=== PATIENT | female | born 1990 | race Caucasian/White ===

== ENCOUNTER 2016-09-25 12:02 | Emergency (ER) | payer SELFPAY ==
[2016-09-25 12:10] VITALS: BP 138/87; PULSE 70; TEMP 98; BMI 39.4
--- NOTE | 2016-09-25 13:53 | PDOC ---
History of Present Illness - General Chief Complaint: Rectal Bleed Stated Complaint: RECTAL BLEEDING Time Seen by Provider: 09/25/16 13:03 History Source: Patient Exam Limitations: No Limitations - History of Present Illness Initial Comments: 26 yo F no PMH presents with rectal bleeding x1 day. She states that she had intercourse last night and a finger was inserted in her rectum. She denies any pain. She states that she did not bleed until this morning. She had a bowel movement and noticed blood passing with brown stool. Denies abdominal pain, weakness, lightheadedness. Past History - Past Medical History Allergies/Adverse Reactions: Allergies Allergy/AdvReac Type Severity Reaction Status Date / Time sumatriptan succinate Allergy Severe feeling of Verified 09/25/16 12:10 [From Treximet] throat closing naproxen sodium Allergy Verified 09/25/16 12:10 [From Treximet] Home Medications: Ambulatory Orders NK [No Known Home Medication] 09/25/16 Asthma: No Cancer: No Cardiac Disorders: No Diabetes: No HTN: No Seizures: No Thyroid Disease: No - Reproductive History (#): 1 Para: 0 Therapeutic (s) & number: No Spontaneous : 0 - Psycho/Social/Smoking Cessation Hx Anxiety: No Suicidal Ideation: No Smoking Status: No Smoking History: Never smoked Number of Cigarettes Smoked Daily: 0 Hx Alcohol Use: No Drug/Substance Use Hx: No Substance Use Type: None Hx Substance Use Treatment: No Review of Systems - Review of Systems Able to Perform ROS?: Yes Comments:: GENERAL/CONSTITUTIONAL: No fever or chills. No weakness. HEAD, EYES, EARS, NOSE AND THROAT: No change in vision. No ear pain or discharge. No sore throat. CARDIOVASCULAR: No chest pain or shortness of breath. RESPIRATORY: No cough, wheezing, or hemoptysis. GASTROINTESTINAL: No nausea, vomiting, diarrhea or constipation. GENITOURINARY: No dysuria, frequency, or change in urination. MUSCULOSKELETAL: No joint or muscle swelling or pain. No neck or back pain. SKIN: No rash NEUROLOGIC: No headache, vertigo, loss of consciousness, or change in strength/ sensation. ENDOCRINE: No increased thirst. No abnormal weight change. HEMATOLOGIC/LYMPHATIC: No anemia, easy bleeding, or history of blood clots. ALLERGIC/IMMUNOLOGIC: No hives or skin allergy. *Physical Exam - Vital Signs Last Vital Signs Temp Pulse Resp BP Pulse Ox 98.0 F 70 20 138/87 99 09/25/16 12:06 09/25/16 12:06 09/25/16 12:06 09/25/16 12:06 09/25/16 12:06 - Physical Exam Comments: GENERAL: Awake, alert, and fully oriented, in no acute distress HEAD: No signs of trauma EYES: PERRLA, EOMI, sclera anicteric, conjunctiva clear ENT: Auricles normal inspection, hearing grossly normal, nares patent, oropharynx clear without exudates. Moist mucosa NECK: Normal ROM, supple, no lymphadenopathy, JVD, or masses LUNGS: Breath sounds equal, clear to auscultation bilaterally. No wheezes, and no crackles HEART: Regular rate and rhythm, normal S1 and S2, no murmurs, rubs or gallops ABDOMEN: Soft, nontender, normoactive bowel sounds. No guarding, no rebound. No masses EXTREMITIES: Normal range of motion, no edema. No clubbing or cyanosis. No cords, erythema, or tenderness NEUROLOGICAL: Cranial nerves II through XII grossly intact. Normal speech, normal gait SKIN: Warm, Dry, normal turgor, no rashes or lesions noted. RECTAL: Nontender to palpation. No blood noted. Small external hemorrhoids, nonthrombosed. Medical Decision Making - Medical Decision Making Counseled patient to avoid any rectal contact during intercourse until the hemorrhoid heals. F/u with PMD. *DC/Admit/Observation/Transfer Diagnosis at time of Disposition: Hemorrhoid Qualifiers: Hemorrhoid type: other Qualified Code(s): K64.8 - Other hemorrhoids - Discharge Dispostion Disposition: HOME Condition at time of disposition: Stable Admit: No - Patient Instructions Printed Discharge Instructions: DI for Hemorrhoids Additional Instructions: TUCKS PADS, PREPARATION H, AND SITZ BATHS (ALL OVER THE COUNTER IN PHARMACY). NO ANAL INTERCOURSE OR INSERTION OF OBJECTS UNTIL IT HEALS.
== END 2016-09-25 14:30 | disposition home or self-care (01) ==
LOC: JER 12:02
DX: K64.8 Other hemorrhoids (principal)
CPT/HCPCS: 84703; 99282-25

== ENCOUNTER 2018-04-06 22:45 | Emergency (ER) | payer OTHER ==
[2018-04-06 23:10] VITALS: BP 111/71; PULSE 101; TEMP 98.4; BMI 44.2
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
== END 2018-04-07 01:21 | disposition home or self-care (01) ==
LOC: JER 22:45
DX: J70.5 Respiratory conditions due to smoke inhalation (principal)
CPT/HCPCS: 99282-25

== ENCOUNTER 2018-07-02 18:54 | Emergency (ER) | payer OTHER ==
[2018-07-02 19:00] VITALS: BP 126/73; PULSE 95; TEMP 98.7; BMI 46.0
--- NOTE | 2018-07-02 19:00 | PDOC ---
Rapid Medical Evaluation Chief Complaint: Cold Symptoms Time Seen by Provider: 07/02/18 18:58 Medical Evaluation: Allergies Allergy/AdvReac Type Severity Reaction Status Date / Time sumatriptan succinate Allergy Severe feeling of Verified 04/06/18 23:07 [From Treximet] throat closing naproxen sodium Allergy Verified 04/06/18 23:07 [From Treximet] 07/02/18 18:59 Pt c/o: sore throat x 5 days, nasal congestion and right ear pain, no fever Pt on brief exam: mild erythema to post pharynx, vss Pt ordered for: strep Pt to proceed to the ED Discharge Disposition - Diagnosis Sore throat - Referrals - Patient Instructions - Post Discharge Activity
--- NOTE | 2018-07-02 19:30 | PDOC ---
History of Present Illness - General Chief Complaint: Cold Symptoms Stated Complaint: SORE THROAT, Rt ear discomfort Time Seen by Provider: 07/02/18 18:58 History Source: Patient Exam Limitations: No Limitations - History of Present Illness Timing/Duration: reports: getting worse Severity: reports: mild, moderate Associated Symptoms: reports: fever/chills, nasal congestion Past History - Travel Traveled outside of the country in the last 30 days: No Close contact w/someone who was outside of country & ill: No - Past Medical History Allergies/Adverse Reactions: Allergies Allergy/AdvReac Type Severity Reaction Status Date / Time sumatriptan succinate Allergy Severe feeling of Verified 07/02/18 19:00 [From Treximet] throat closing naproxen sodium Allergy Verified 07/02/18 19:00 [From Treximet] Home Medications: Ambulatory Orders Pseudoephedrine HCl 30 mg PO Q6H PRN #20 tablet 07/02/18 Asthma: No Cancer: No Cardiac Disorders: No COPD: No Diabetes: No HTN: No Seizures: No Thyroid Disease: No - Reproductive History (#): 1 Para: 0 Therapeutic (s) & number: No Spontaneous : 0 - Suicide/Smoking/Psychosocial Hx Smoking Status: No Smoking History: Never smoked Have you smoked in the past 12 months: No Number of Cigarettes Smoked Daily: 0 Information on smoking cessation initiated: No Hx Alcohol Use: No Drug/Substance Use Hx: No Substance Use Type: None Hx Substance Use Treatment: No Review of Systems - Review of Systems Able to Perform ROS?: Yes Is the patient limited Kazakh proficient: Yes Constitutional: Yes: Symptoms Reported, See HPI, Fever, Malaise HEENTM: Yes: Symptoms Reported, See HPI, Ear Pain, Nose Congestion Respiratory: Yes: Symptoms reported, See HPI, Cough Cardiac (ROS): No: Symptoms Reported Musculoskeletal: Yes: See HPI. No: Symptoms Reported Integumentary: Yes: See HPI. No: Symptoms Reported All Other Systems: Reviewed and Negative *Physical Exam - Vital Signs Last Vital Signs Temp Pulse Resp BP Pulse Ox 98.7 F 95 H 19 126/73 100 07/02/18 18:57 07/02/18 18:57 07/02/18 18:57 07/02/18 18:57 07/02/18 18:57 - Physical Exam General Appearance: Yes: Nourished, Appropriately Dressed, Mild Distress HEENT: positive: BOZENA, Normal ENT Inspection, Pharynx Normal (with clear posterior sinus drainage- no exudate / swelling/ airway clear), Nasal Congestion , Rhinorrhea (clear), Sinus Tenderness. negative: TMs Normal (congested ), Tonsillar Exudate Neck: positive: Supple, Lymphadenopathy (R), Lymphadenopathy (L). negative: Tender Respiratory/Chest: positive: Lungs Clear, Normal Breath Sounds. negative: Rhonchi, Wheezing Gastrointestinal/Abdominal: positive: Soft. 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 No evidence of bacterial infection therefore Will treat conservatively for postnasal drainage with sore throat pain. *DC/Admit/Observation/Transfer Diagnosis at time of Disposition: Sore throat - Discharge Dispostion Disposition: HOME Condition at time of disposition: Stable Decision to Admit order: No - Referrals - Patient Instructions Printed Discharge Instructions: DI for Common Cold Additional Instructions: Rest, drink lots of fluids: Teas, water, soups, Pedialyte Saltwater gargles Steamy showers/seem to face break up mucus Avoid contact with others until fevers and cough resolved Lots of handwashing and good hygiene Continue [id number] medications for symptomatic relief Tylenol or Motrin for fever and pain Followup with private physician in one to 2 days as needed Return to emergency department for worsened symptoms, fevers, dehydration - Post Discharge Activity Forms/Work/School Notes: Back to Work
== END 2018-07-02 19:54 | disposition home or self-care (01) ==
LOC: JER 18:54 → JERFT 18:54
DX: J00 Acute nasopharyngitis [common cold] (principal)
CPT/HCPCS: 87070; 87880; 99281-25

== ENCOUNTER 2018-07-04 13:14 | Emergency (ER) | payer OTHER ==
[2018-07-04 13:19] VITALS: BP 128/76; PULSE 66; TEMP 98.3; BMI 44.2
--- NOTE | 2018-07-04 13:46 | PDOC ---
History of Present Illness - General Chief Complaint: Eye Problem Stated Complaint: PINK EYE Time Seen by Provider: 07/04/18 13:25 - History of Present Illness Initial Comments: 07/04/18 13:41 28-year-old female without comorbidities presents for left eye irritation without systemic symptoms times one day. She complains of crusting eyes closed and continuous discharge Past History - Past Medical History Allergies/Adverse Reactions: Allergies Allergy/AdvReac Type Severity Reaction Status Date / Time sumatriptan succinate Allergy Severe feeling of Verified 07/04/18 13:16 [From Treximet] throat closing naproxen sodium Allergy Verified 07/04/18 13:16 [From Treximet] Home Medications: Ambulatory Orders Pseudoephedrine HCl 30 mg PO Q6H PRN #20 tablet 07/02/18 Asthma: No Cancer: No Cardiac Disorders: No COPD: No Diabetes: No HTN: No Seizures: No Thyroid Disease: No - Reproductive History (#): 1 Para: 0 Therapeutic (s) & number: No Spontaneous : 0 - Suicide/Smoking/Psychosocial Hx Smoking Status: No Smoking History: Never smoked Have you smoked in the past 12 months: No Number of Cigarettes Smoked Daily: 0 Hx Alcohol Use: No Drug/Substance Use Hx: No Substance Use Type: None Hx Substance Use Treatment: No Review of Systems - Review of Systems HEENTM: Yes: Tearing. No: Eye Pain, Blurred Vision, Recent change in vision, Double Vision *Physical Exam - Vital Signs Last Vital Signs Temp Pulse Resp BP Pulse Ox 98.3 F 66 128/76 98 07/04/18 13:17 07/04/18 13:17 07/04/18 13:17 07/04/18 13:17 - Physical Exam Comments: 07/04/18 13:43 HEAD: NC/AT EYES: Conjuntiva clear on right I, erythemic injected with a small amount of discharge on left eye MS: Full ROM in all joints without edema NEUROLOGIC: No gross sensory or motor deficits, NVID SKIN: Normal color and temperature no lesions or rashes Moderate Sedation - Procedure Monitoring Vital Signs: Procedure Monitoring Vital Signs Temperature 98.3 F 07/04/18 13:17 Pulse Rate 66 07/04/18 13:17 Respiratory Rate Blood Pressure 128/76 07/04/18 13:17 O2 Sat by Pulse Oximetry (%) 98 07/04/18 13:17 Medical Decision Making - Medical Decision Making 07/04/18 13:44 tobramycin for bacterial conjuntivitis opththalmology follow-up in 1-2 days *DC/Admit/Observation/Transfer Diagnosis at time of Disposition: Acute bacterial conjunctivitis of left eye - Discharge Dispostion Disposition: HOME Condition at time of disposition: Stable Decision to Admit order: No - Referrals Referrals: Syed Garcia MD [Staff Physician] - Syed Garcia MD [Staff Physician] - Stanley Valdez MD [Non Staff, Medical] - Antoine Crockett [Non Staff, Medical] - Juan Antonio Phillips MD [Non Staff, Medical] - Lemuel Guzmán MD [Staff Physician] - Adali Urbano MD [Staff Physician] - Eddie Avelar MD, MD [Non Staff, Medical] - Peter Espinoza MD [Non Staff, Medical] - Reyna Woodard MD [Non Staff, Medical] - - Patient Instructions Printed Discharge Instructions: How to Instill Eye Drops, Conjunctivitis, DI for Conjunctivitis Additional Instructions: Please use the antibiotic drops as directed. Return to the emergency room for worsening symptoms and follow-up with ophthalmology in one to 2 days for further evaluation and treatment options - Post Discharge Activity
== END 2018-07-04 13:52 | disposition home or self-care (01) ==
LOC: JERFT 13:14
DX: H10.32 Unspecified acute conjunctivitis, left eye (principal); B96.89 Other specified bacterial agents as the cause of diseases classified elsewhere
CPT/HCPCS: 99281-25

== ENCOUNTER 2019-09-27 13:00 | Inpatient (IN) | payer OTHER ==
[2019-09-21 12:02] VITALS: BMI 45.1
[2019-10-18] MEDS ORDERED: LIDOCAINE HCL/PF 2% SDV 5ML VIAL ONE ×3 (09:21→11:29)
[2019-10-18] MEDS ORDERED: DESFLURANE GAS 240 ML BOTTLE IH ONE (09:56)
[2019-10-18] MEDS ORDERED: PROPOFOL 20 ML ONE ×2 (10:03→11:50)
[2019-10-18] MEDS ORDERED: ONDANSETRON 4 MG/2 ML VIAL ONE (10:03)
[2019-10-18] MEDS ORDERED: ceFAZolin SODIUM 1 GM VIAL ONE (10:03)
[2019-10-18] MEDS ORDERED: DEXAMETHASONE SOD PHOSPHATE 4 MG/1 ML VIAL ONE (10:03)
[2019-10-18] MEDS ORDERED: SUCCINYLCHOLINE CHLORIDE 200 MG/10 ML SYRINGE ONE (10:03)
[2019-10-18] MEDS ORDERED: ROCURONIUM BROMIDE 50 MG/5 ML SYRINGE ONE (10:03)
[2019-10-18] MEDS ORDERED: MIDAZOLAM HCL 2 MG/2 ML SINGLE DOSE VIAL ONE (10:29)
[2019-10-18] MEDS ORDERED: BUPIVACAINE HCL/PF 0.5% (5 MG/ML) 30 ML VIAL IJ ONE (10:29)
[2019-10-18] MEDS ORDERED: SODIUM CHLORIDE 0.9% P/F 10 ML VIAL IJ ONE (10:29)
--- NOTE | 2019-10-18 10:34 | HP ---
Admitting History and Physical - Admission Chief Complaint: Morbid obesity History Source: Patient Limitations to Obtaining History: No Limitations - Past Medical History ...LMP: 07/20/12 ...LMP Comment: UNKNOWN PT HAS AN IUD ...: No - Past Surgical History Past Surgical History: Yes: , Tonsillectomy - Smoking History Smoking history: Never smoked Have you smoked in the past 12 months: No Aproximately how many cigarettes per day: 0 - Alcohol/Substance Use Hx Alcohol Use: No - Social History ADL: Independent Home Medications - Allergies Allergies/Adverse Reactions: Allergies Allergy/AdvReac Type Severity Reaction Status Date / Time sumatriptan succinate Allergy Severe feeling of Verified 09/21/19 11:34 [From Treximet] throat closing naproxen sodium Allergy Verified 09/21/19 11:34 [From Treximet] - Home Medications Home Medications: Ambulatory Orders Docusate Sodium [Colace -] 100 mg PO TID #90 capsule 10/18/19 Famotidine [Pepcid] 20 mg PO BID #60 tablet 10/18/19 Ondansetron [Zofran -] 8 mg PO TID #30 tablet 10/18/19 Oxycodone HCl/Acetaminophen [Percocet 5-325 mg Tablet] 1 - 2 tab PO Q6H #28 tab MDD 4 10/18/19 Family Medical History Family History: Unremarkable Review of Systems - Review of Systems Constitutional: denies: Chills, Fever Neck: reports: No Symptoms Cardiovascular: reports: No Symptoms Respiratory: reports: No Symptoms Gastrointestinal: reports: No Symptoms Neurological: reports: No Symptoms Pain Intensity: 0 Physical Examination Vital Signs: Vital Signs Temperature 98.7 F 10/18/19 08:13 Pulse Rate 77 10/18/19 08:13 Respiratory Rate 18 10/18/19 08:13 Blood Pressure 147/87 10/18/19 08:13 O2 Sat by Pulse Oximetry (%) 99 10/18/19 08:37 Constitutional: Yes: Calm Cardiovascular: Yes: WNL Respiratory: Yes: WNL Gastrointestinal: Yes: Soft, Abdomen, Obese Neurological: Yes: Alert, Oriented Problem List - Problems (1) Morbid obesity due to excess calories Code(s): E66.01 - MORBID (SEVERE) OBESITY DUE TO EXCESS CALORIES (2) BMI 45.0-49.9, adult Code(s): Z68.42 - BODY MASS INDEX (BMI) 45.0-49.9, ADULT Assessment/Plan Laparoscopic possible open vertical sleeve gastrectomy possible liver biopsy, upper endoscopy
[2019-10-18] MEDS ORDERED: BUPIVACAINE HCL/PF 2.5 MG/ML - 30 ML VIAL IJ ONE (10:56)
[2019-10-18] MEDS ORDERED: BUPIVACAINE HCL/PF 0.25% (2.5MG/ML) 10 ML VIAL IJ ONE ×2 (12:07→12:32)
[2019-10-18] MEDS ORDERED: NEOSTIGMINE METHYLSULFATE 0.5 MG/ML - 10 ML MDV ONE (12:27)
--- NOTE | 2019-10-18 12:36 | OPR ---
Operative Note Operative Date: 10/18/19 Pre-Operative Diagnosis: Morbid obesity Operation: 1. Diagnostic laparoscopy. 2. Laparoscopic vertical sleeve gastrectomy. 3. Laparoscopic wedge liver biopsy. 4. Laparoscopic oversewing of gastric staple line Post-Operative Diagnosis: Same as Pre-op (as well as hepatomegaly and oozing from gastric staple line) Surgeon: Paul Gallegos Motor Equipment Sergeant: Terrance Fishman Anesthesia: General Specimens Removed: Greater curvature of stomach. Liver biopsy. Estimated Blood Loss (mls): 30 Drains & Tubes with Location: [address] Operative Report Dictated: Yes
[2019-10-18] MEDS ORDERED: SODIUM CHLORIDE 1,000 ML IV SCH (12:45)
[2019-10-18] MEDS ORDERED: ACETAMINOPHEN 1000 MG/100 ML VIAL (NON FORMULARY) IVPB ONE (13:04)
[2019-10-18] MEDS ORDERED: FAMOTIDINE 20 MG/50 ML IVPB 20 MG/50 ML MG IVPB ONE (13:04)
[2019-10-18] MEDS: METOCLOPRAMIDE HCL INJECTION 10 MG/2 ML VIAL IVPUSH SCH ×2 (13:10→20:14)
[2019-10-18] MEDS ORDERED: FAMOTIDINE 20 MG PREMIXED IVPB IVPB ONE (13:15)
[2019-10-18 13:57] LABS: HEMATOCRIT 35.9 % (32.4-45.2); HEMOGLOBIN 11.9 GM/dl (10.7-15.3); MCH 27.5 pg (25.7-33.7); MCHC 33.2 g/dl (32.0-36.0); MEAN PLT VOLUME 9.3 fl (7.5-11.1); PLATELET COUNT 331 K/MM3 (134-434); RBC 4.33 M/mm3 (3.60-5.2); RDW 13.4 % (11.6-15.6); WHITE BLOOD COUNT 12.3 K/mm3 (4.0-10.8)
[2019-10-18 14:06] LABS: ALBUMIN 3.6 g/dl (3.4-5.0); CALCIUM 8.4 mg/dl (8.5-10); CREATININE 0.6 mg/dl (0.55-1.3); POTASSIUM 4.2 mmol/L (3.5-5.1); TOT PROT 7.1 g/dl (6.4-8.2)
[2019-10-18 14:17] LABS: BILIRUBIN,TOTAL 0.6 mg/dl (0.2-1)
[2019-10-18] MEDS: HYDROmorphone HCL CARPU-JECT 1 MG/1 ML DISP.SYRIN IVPB PRN ×2 (15:33→22:09)
[2019-10-18] MEDS: ONDANSETRON 4 MG/2 ML VIAL IVPUSH SCH ×2 (16:31→20:14)
--- NOTE | 2019-10-18 18:48 | OP ---
DATE OF OPERATION: 10/18/2019 SURGEON: Paul Gallegos MD. WOODWORK SALVAGE INSPECTOR: Terrance Fishman MD. PLACE OF SURGERY: [facility], [address] [place] [address] PREOPERATIVE DIAGNOSIS: 1. Morbid obesity. 2. Body mass index of 45.2. POSTOPERATIVE DIAGNOSIS: 1. Morbid obesity. 2. Body mass index of 45.2. PROCEDURES: 1. Laparoscopic vertical sleeve gastrectomy. 2. Laparoscopic wedge liver biopsy. 3. Oversewing of gastric staple line with Endo Stitch device for oozing. SPECIMENS: 1. Greater curvature of the stomach. 2. Liver biopsy. BLOOD LOSS: 50 mL. DRAINS: None. ANESTHESIA: GET REASON FOR PROCEDURE: This is a 29-year-old female who presents to the office for weight loss options. I described different options. She decided to proceed with laparoscopic, possible open vertical sleeve gastrectomy, possible liver biopsy, upper endoscopy. RISKS AND BENEFITS: After describing the different options for weight loss management, the patient decided to proceed with a laparoscopic, possible open vertical sleeve gastrectomy. The patient was seen by the respective subspecialties and cleared for surgery. The risks and benefits of the procedure were explained. These included bleeding, infection, hernia, MA, DVT, PE, injury to surrounding structures including the liver, colon, bowel, spleen, esophagus, vessel injury, nerve injury, weight regain, gastric leak, staple line leak, sleeve leak, obstruction, vitamin deficiency, hair loss and as some of the possible complications. The patient understood and signed informed consent. DESCRIPTION OF PROCEDURE: The patient was placed supine on the operating room table. The patient underwent general endotracheal intubation. The arms were brought out at 90 degrees and secured. A footboard was placed and the legs were secured laterally with padding. The abdomen was prepped and draped in the usual sterile fashion. A timeout was performed. An incision was made in the left upper quadrant and a Veress needle inserted. Pneumoperitoneum was established. Subsequently, the Veress needle was removed and a 5-mm trocar was placed under direct visualization with the laparoscope. The laparoscopic camera was then inserted and inspection of the abdominal cavity was performed. An incision was then made in the supraumbilical area and a 15-mm trocar was placed under direct visualization. A 5-mm trocar was then placed in the right upper quadrant and a 5-mm trocar was placed below the left subcostal margin. A stab wound was made in the subxiphoid area and a Eugenia clamp inserted and removed to dilate the tract. A Lyn liver retractor was inserted. The post was secured at the bedside by the nursing staff. The patient was placed in steep reverse Trendelenburg position and the Lyn liver retractor was used to secure the liver towards the anterior abdominal wall. The pylorus was identified and 6 cm proximal to it, the lesser sac was entered using the LigaSure device. All lateral attachments to the greater curvature of the stomach, including the short gastric vessels, were ligated using the LigaSure device toward the gastrosplenic and gastrophrenic ligaments. Once this was done in its entirety, it was confirmed that all tubes within the nasal or oropharyngeal cavity, including a temperature probe were removed by Anesthesia. The bougie was then inserted by Anesthesia. Transection of the stomach was then begun staying adjacent to the bougie but away from the angularis. Transection of the stomach was performed near the portion of the stomach where the lesser sac was entered. Two laparoscopic Endo-JLOYNN black tony were used at this location. Laparoscopic Endo JOLYNN purple staple loads were then used for the remainder of the transection until the greater curvature of the stomach was fully transected. This was done staying close to the bougie. Care was taken to stay away from the angle of His cephalad. The staple line was then inspected. Hemostasis was identified. A leak test was then performed. It was clamped distally to the staple line. Irrigation solution was placed in the left upper quadrant and air was insufflated by Anesthesia into the sleeve. No leaks were identified. No obstruction was identified. This was done through the entirety of the staple line. The stomach was suctioned and the bougie removed fully intact under direct visualization. At this point, the irrigation solution was suctioned and again, hemostasis was noted. A wedge liver biopsy was then performed. The left lobe of the liver was identified. A portion of the edge of the left lobe of the liver was grasped. Using electrocautery, a wedge of the left liver was excised. The specimen was removed and sent off the field. Hemostasis of the wedge liver biopsy site was attained and noted using electrocautery. The 15-mm supraumbilical trocar was then removed and the greater curvature specimen removed from the site using a sponge stick so. A Kei-Noemí device was then used to close the fascia with a 0 Vicryl suture at the site. Again, hemostasis was noted. The Lyn liver retractor was then removed under direct visualization. Pneumoperitoneum was desufflated. Hemostasis was noted at all incision sites and Marcaine was injected at all incision sites. A 3-0 Vicryl suture was used to close the deep subcutaneous tissue at the 15-mm incision site. All incision sites were closed using 4-0 Biosyn. Sterile dressings were applied. The patient tolerated the procedure well and was transferred to the recovery room in stable condition. ADDENDUM: Because of the oozing at the gastric staple line, the staple line was oversewed with an Endo Stitch device with a Surgitek suture. Hemostasis was noted. Patient tolerated procedure well and transferred to recovery room in stable condition. Gerson [id number]
[2019-10-18] MEDS: ACETAMINOPHEN 1000 MG/100 ML VIAL (NON FORMULARY) IVPB SCH (20:14)
[2019-10-18] MEDS: ENOXAPARIN NA (PORCINE) 40 MG/0.4 ML DISP.SYRIN SQ SCH (21:50)
[2019-10-18] MEDS: FAMOTIDINE 20 MG/50 ML IVPB 20 MG/50 ML MG IVPB SCH (21:50)
[2019-10-19] MEDS: ONDANSETRON 4 MG/2 ML VIAL IVPUSH SCH ×3 (00:47→09:15)
[2019-10-19] MEDS: HYDROmorphone HCL CARPU-JECT 1 MG/1 ML DISP.SYRIN IVPB PRN ×2 (01:44→10:22)
[2019-10-19] MEDS: METOCLOPRAMIDE HCL INJECTION 10 MG/2 ML VIAL IVPUSH SCH ×2 (01:46→09:15)
[2019-10-19] MEDS: ACETAMINOPHEN 1000 MG/100 ML VIAL (NON FORMULARY) IVPB SCH ×2 (02:26→09:15)
[2019-10-19 08:18] LABS: ALBUMIN 3.4 g/dl (3.4-5.0); BILIRUBIN,TOTAL 0.3 mg/dl (0.2-1); CALCIUM 8.5 mg/dl (8.5-10); CREATININE 0.6 mg/dl (0.55-1.3); POTASSIUM 3.9 mmol/L (3.5-5.1); TOT PROT 6.8 g/dl (6.4-8.2)
[2019-10-19 08:37] LABS: HEMATOCRIT 34.1 % (32.4-45.2); HEMOGLOBIN 11.7 GM/dl (10.7-15.3); MCH 28.2 pg (25.7-33.7); MCHC 34.4 g/dl (32.0-36.0); MEAN CELL VOLUME 81.9 fl (80-96); MEAN PLT VOLUME 9.1 fl (7.5-11.1); PLATELET COUNT 303 K/MM3 (134-434); RBC 4.17 M/mm3 (3.60-5.2); RDW 13.2 % (11.6-15.6)
[2019-10-19] MEDS: ENOXAPARIN NA (PORCINE) 40 MG/0.4 ML DISP.SYRIN SQ SCH (09:23)
[2019-10-19] MEDS: FAMOTIDINE 20 MG/50 ML IVPB 20 MG/50 ML MG IVPB SCH (09:25)
[2019-10-19 12:07] VITALS: BP 118/62; PULSE 57; TEMP 98.6
--- NOTE | 2019-10-26 10:41 | PATH ---
Surgical Pathology Report Patient Name: STEFAN DAVISON Med. Rec. #: [id number] /Age/Gender: 1990 (Age: 29) / F Account: [id number] Location: [facility] Taken: 10/18/2019 Received: 10/18/2019 Reported: 10/26/2019 Physicians: Paul Gallegos M.D. Specimen(s) Received A: GREATER CURVATURE STOMACH B: LIVER BIOPSY Clinical History Morbid obesity Final Diagnosis A. STOMACH, GREATER CURVATURE, LAPAROSCOPIC VERTICAL SLEEVE GASTRECTOMY: PORTION OF STOMACH WITH MODERATE CHRONIC GASTRITIS. IMMUNOHISTOCHEMICAL STAIN FOR H. PYLORI IS NEGATIVE. B. LIVER, BIOPSY: LIVER PARENCHYMA WITH MILD PATCHY STEATOSIS (~15-20%). NO INCREASE IN IRON AND FIBROSIS ON PERFORMED SPECIAL STAINS (IRON AND TRICHROME). Electronically Signed Rosamaria Moss M.D. Gross Description A. Received in formalin, labeled "greater curvature of stomach," is a 90 gram, 17.5 x 3.0 x 2.7 cm. portion of stomach with a stapled margin of resection. The serosa is escobar-edwards with minimal attached fat. The mucosa is escobar-pink with normal folds. No mucosal masses are identified. Fork Repairer sections are submitted in one cassette. B. Received in formalin labeled "liver biopsy," is a 3.5 x 1.1 x 0.6 cm escobar portion of soft tissue, consistent with a liver biopsy. Fork Repairer sections are submitted in one cassette. /10/19/2019 saudi10/19/2019
== END 2019-10-19 12:40 | disposition home or self-care (01) | DRG 403 ==
LOC: FM/S 10-18 07:37
PROVIDERS: ADMIT Surgery; ATTEND Surgery
PROC: 0DB64Z3 Excision of Stomach, Percutaneous Endoscopic Approach, Vertical (ICD-10-PCS; principal; 2019-10-18 11:24)
PROC: 0FB24ZX Excision of Left Lobe Liver, Percutaneous Endoscopic Approach, Diagnostic (ICD-10-PCS; 2019-10-18 11:24)
DX: E66.01 Morbid (severe) obesity due to excess calories (principal); Z68.42 Body mass index [BMI] 45.0-49.9, adult
CPT/HCPCS: 36415; 74240-TC-FY; 80053; 84703; 85027; 88305-TC; 94760; J0131

== ENCOUNTER 2019-12-01 14:25 | Inpatient (IN) | payer OTHER ==
[2019-12-01 14:43] VITALS: BMI 38.2
[2019-12-01] MEDS ORDERED: SODIUM CHLORIDE 0.9% 500 ML INFUS.BAG IV ONE ×2 (14:58→16:19)
[2019-12-01] MEDS ORDERED: ONDANSETRON 4 MG/2 ML VIAL IVPUSH ONE ×3 (14:58→21:55)
[2019-12-01 15:29] LABS: BASO % 0.4 % (0-2.0); EOS % 1.2 % (0-4.5); HEMATOCRIT 42.7 % (32.4-45.2); MCH 27.5 pg (25.7-33.7); MCHC 32.9 g/dl (32.0-36.0); MEAN CELL VOLUME 83.8 fl (80-96); MEAN PLT VOLUME 9.8 fl (7.5-11.1); MONO % 7.9 % (3.8-10.2); NEUT % 69.5 % (42.8-82.8); PLATELET COUNT 227 K/MM3 (134-434); RDW 14.9 % (11.6-15.6); WHITE BLOOD COUNT 7.7 K/mm3 (4.0-10.0)
[2019-12-01 15:44] LABS: ALBUMIN 3.8 g/dl (3.4-5.0); ALK PHOS 71 U/L (45-117); ANION GAP 12 MMOL/L (8-16); BILIRUBIN,TOTAL 0.6 mg/dL (0.2-1); BLOOD UREA NITROGEN 6.7 mg/dL (7-18); CALCIUM 9.5 mg/dL (8.5-10.1); CHLORIDE 103 mmol/L (98-107); CO2 25 mmol/L (21-32); CREATININE 0.5 mg/dL (0.55-1.3); GLUCOSE,RANDOM 82 mg/dL (74-106); LIPASE 600 U/L (73-393); POTASSIUM 4.2 mmol/L (3.5-5.1); SGOT/AST 60 U/L (15-37); SGPT/ALT 99 U/L (13-61); SODIUM 140 mmol/L (136-145); TOT PROT 7.8 g/dl (6.4-8.2)
[2019-12-01 15:45] LABS: EPI CELLS >36 /uL (0-25.1); HYALINE CASTS 29 /uL (0-3.1); PH,URINE 6.5 (5.0-8.0); URINE APPEARANCE CLOUDY; URINE BACTERIA 5456 /uL (0-1359); URINE BILIRUBIN 2+ (NEGATIVE); URINE COLOR DK YELLOW; URINE GLUCOSE (UA) NEGATIVE (NEGATIVE); URINE KETONE 4+ (NEGATIVE); URINE LEUK ESTERASE TRACE (NEGATIVE); URINE NITRITE NEGATIVE (NEGATIVE); URINE PROTEIN 1+ (NEGATIVE); URINE WBC 247 /uL (0-25.8)
[2019-12-01] MEDS ORDERED: PANTOPRAZOLE SODIUM 40 MG VIAL IVPUSH ONE (16:18)
--- NOTE | 2019-12-01 16:21 | PDOC ---
History of Present Illness - General Chief Complaint: Nausea/Vomiting Stated Complaint: SICK Time Seen by Provider: 12/01/19 14:47 - History of Present Illness Initial Comments: 12/01/19 16:22 29-year-old female status post gastric sleeve 6 weeks postop unable to tolerate p.o. sent to the emergency room by Dr. Ruiz from GI 12/01/19 16:22 Past History - Medical History Allergies/Adverse Reactions: Allergies Allergy/AdvReac Type Severity Reaction Status Date / Time sumatriptan succinate Allergy Severe feeling of Verified 12/01/19 16:01 [From Treximet] throat closing naproxen sodium Allergy Verified 12/01/19 16:01 [From Treximet] Home Medications: Ambulatory Orders NK [No Known Home Medication] 12/01/19 Anemia: No Asthma: No Cancer: No Cardiac Disorders: No CVA: No COPD: No CHF: No Dementia: No Diabetes: No (PRE) GI Disorders: Yes (GERD) Disorders: No HTN: No Hypercholesterolemia: No Liver Disease: No Seizures: No Thyroid Disease: No - Surgical History Abdominal Surgery: No Appendectomy: No Cardiac Surgery: No Cholecystectomy: No Lung Surgery: No Neurologic Surgery: No Orthopedic Surgery: No - Reproductive History Is Patient Now?: No (#): 1 Para: 0 Therapeutic (s) & number: No Spontaneous : 0 - Immunization History Immunization Up to Date: Yes - Psycho-Social/Smoking History Smoking Status: No Smoking History: Never smoked Have you smoked in the past 12 months: No Number of Cigarettes Smoked Daily: 0 - Substance Abuse Hx (Audit-C & DAST Scrn) How often the patient has a drink containing alcohol: Never Score: In Men: 4 or > Positive; In Women: 3 or > Positive: 0 Screen Result (Pos requires Nsg. Audit-10AR): Negative In the last yr the pt used illegal drug/Rx for NonMed reason: No Score: Yes response is considered Positive: 0 Screen Result (Positive result requires Nsg. DAST-10): Negative Review of Systems - Review of Systems Constitutional: No: Fever ABD/GI: Yes: Nausea, Vomiting *Physical Exam - Vital Signs Last Vital Signs Temp Pulse Resp BP Pulse Ox 98.5 F 78 24 H 121/75 99 12/01/19 14:39 12/01/19 14:39 12/01/19 14:39 12/01/19 14:39 12/01/19 14:39 - Physical Exam General Appearance: Yes: Nourished, Appropriately Dressed. 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 NML intact ED Treatment Course - LABORATORY CBC & Chemistry Diagram: 12/01/19 15:15 12/01/19 15:15 - ADDITIONAL ORDERS Additional order review: Laboratory Results 12/01/19 12/01/19 12/01/19 15:35 15:15 15:15 Sodium 140 Potassium 4.2 Chloride 103 Carbon Dioxide 25 Anion Gap 12 BUN 6.7 L Creatinine 0.5 L Est GFR (CKD-EPI)AfAm 153.73 Est GFR (CKD-EPI)NonAf 132.64 Random Glucose 82 Calcium 9.5 Total Bilirubin 0.6 AST 60 H ALT 99 H Alkaline Phosphatase 71 Total Protein 7.8 Albumin 3.8 Lipase 600 H Serum , Qual Negative Urine Color Dk yellow Urine Appearance Cloudy Urine pH 6.5 Ur Specific [place] 1.038 H Urine Protein 1+ H Urine Glucose (UA) Negative Urine Ketones 4+ H Urine Blood Trace Urine Nitrite Negative Urine Bilirubin 2+ H Urine Urobilinogen 1.0 Ur Leukocyte Esterase Trace Urine WBC (Auto) 247 Urine Casts (Auto) 29 U Epithel Cells (Auto) >36 Urine Bacteria (Auto) 5456 12/01/19 15:15 RBC 5.10 MCV 83.8 MCHC 32.9 RDW 14.9 MPV 9.8 Neutrophils % 69.5 Lymphocytes % 21.0 Monocytes % 7.9 Eosinophils % 1.2 Basophils % 0.4 - Medications Given in the ED: ED Medications Discontinued Medications Generic Name Dose Route Start Last Admin Trade Name Freq PRN Reason Stop Dose Admin Ondansetron HCl 4 mg 12/01/19 14:58 12/01/19 15:33 Zofran Injection IVPUSH 12/01/19 14:59 4 mg ONCE ONE Administration Sodium Chloride 1,000 ml 12/01/19 14:58 08/19/20 15:33 Normal Saline - IV 12/01/19 14:59 1,000 ml ONCE ONE Administration Medical Decision Making - Medical Decision Making 12/01/19 16:12 Dr Sara WEST phoned (pt's GI doctor) 12/01/19 16:[address] Terry from gastroenterology he would like a p.o. contrast study of the abdomen and pelvis CAT scan, IV Protonix more fluid no Reglan for nausea only Zofran at this time. Discussed with patient she is aware of the plan. 12/01/19 20:24 Patient developed mild chest discomfort after finishing her p.o. contrast which has resolved. Chest x-ray EKG and troponin was ordered. 12/01/19 21:46 Dr Gallegos operating surgeon called with CT results awaiting call back. 12/01/19 22:15 Hospitalist called for admission for pancreatitis 12/01/19 22:25 Pt signed out at this time Discharge - Discharge Information Problems reviewed: Yes Clinical Impression/Diagnosis: Pancreatitis Condition: Stable - Follow up/Referral Referrals: Haja Limon MD [Primary Care Provider] - - Patient Discharge Instructions - Post Discharge Activity
[2019-12-01 16:30] LABS: URINE RBC 39.8 /uL (0-23.9)
[2019-12-01] MEDS ORDERED: PANTOPRAZOLE SODIUM 40 MG/100 ML BAG IVPB ONE (16:33)
--- NOTE | 2019-12-01 22:37 | PDOC ---
*Physical Exam - Vital Signs Last Vital Signs Temp Pulse Resp BP Pulse Ox 98.2 F 63 20 117/74 99 12/01/19 18:35 12/01/19 18:35 12/01/19 18:35 12/01/19 18:35 12/01/19 18:35 - Physical Exam 12/01/19 22:34 No distress Abdomen minimally ttp ED Treatment Course - LABORATORY CBC & Chemistry Diagram: 12/01/19 15:15 12/01/19 15:15 - ADDITIONAL ORDERS Additional order review: Laboratory Results 12/01/19 12/01/19 12/01/19 15:35 15:20 15:15 Sodium 140 Potassium 4.2 Chloride 103 Carbon Dioxide 25 Anion Gap 12 BUN 6.7 L Creatinine 0.5 L Est GFR (CKD-EPI)AfAm 153.73 Est GFR (CKD-EPI)NonAf 132.64 Random Glucose 82 Calcium 9.5 Total Bilirubin 0.6 AST 60 H ALT 99 H Alkaline Phosphatase 71 Creatine Kinase Cancelled 58 Troponin I Cancelled < 0.02 Total Protein 7.8 Albumin 3.8 Lipase 600 H Serum , Qual Urine Color Dk yellow Urine Appearance Cloudy Urine pH 6.5 Ur Specific [place] 1.038 H Urine Protein 1+ H Urine Glucose (UA) Negative Urine Ketones 4+ H Urine Blood Trace Urine Nitrite Negative Urine Bilirubin 2+ H Urine Urobilinogen 1.0 Ur Leukocyte Esterase Trace Urine WBC (Auto) 247 Urine RBC (Auto) 39.8 Urine Casts (Auto) 29 U Pathogenic Cast Auto Negative U Epithel Cells (Auto) >36 Urine Bacteria (Auto) 5456 12/01/19 15:15 Sodium Potassium Chloride Carbon Dioxide Anion Gap BUN Creatinine Est GFR (CKD-EPI)AfAm Est GFR (CKD-EPI)NonAf Random Glucose Calcium Total Bilirubin AST ALT Alkaline Phosphatase Creatine Kinase Troponin I Total Protein Albumin Lipase Serum , Qual Negative Urine Color Urine Appearance Urine pH Ur Specific [place] Urine Protein Urine Glucose (UA) Urine Ketones Urine Blood Urine Nitrite Urine Bilirubin Urine Urobilinogen Ur Leukocyte Esterase Urine WBC (Auto) Urine RBC (Auto) Urine Casts (Auto) U Pathogenic Cast Auto U Epithel Cells (Auto) Urine Bacteria (Auto) 12/01/19 15:15 RBC 5.10 MCV 83.8 MCHC 32.9 RDW 14.9 MPV 9.8 Neutrophils % 69.5 Lymphocytes % 21.0 Monocytes % 7.9 Eosinophils % 1.2 Basophils % 0.4 - Medications Given in the ED: ED Medications Discontinued Medications Generic Name Dose Route Start Last Admin Trade Name Yamilet PRN Reason Stop Dose Admin Ondansetron HCl 4 mg 12/01/19 14:58 12/01/19 15:33 Zofran Injection IVPUSH 12/01/19 14:59 4 mg ONCE ONE Administration Ondansetron HCl 4 mg 12/01/19 17:47 12/01/19 18:25 Zofran Injection IVPUSH 12/01/19 17:48 4 mg ONCE ONE Administration Pantoprazole Sodium 40 mg 12/01/19 16:18 12/01/19 16:30 Protonix Iv IVPUSH 12/01/19 16:19 40 mg ONCE ONE Administration Sodium Chloride 1,000 ml 12/01/19 14:58 12/01/19 15:33 Normal Saline - IV 12/01/19 14:59 1,000 ml ONCE ONE Administration Sodium Chloride 1,000 ml 12/01/19 16:19 12/01/19 16:48 Normal Saline - IV 12/01/19 16:20 1,000 ml ONCE ONE Administration Medical Decision Making - Medical Decision Making 12/01/19 22:34 Pt signed out to me pending admission as hospitalist did not call with admitting attendings name before prior provider left. Labs significant for early pancreatitis and inc in LFTs Signout given to Hospitalist Pt admitted to Dr Baires for further management and care Discharge - Discharge Information Problems reviewed: Yes Clinical Impression/Diagnosis: Pancreatitis Qualifiers: Chronicity: acute Pancreatitis type: other Acute pancreatitis complication: no infection or necrosis Qualified Code(s): K85.80 - Other acute pancreatitis without necrosis or infection Condition: Stable - Admission Yes - Follow up/Referral Referrals: Haja Limon MD [Primary Care Provider] - - Patient Discharge Instructions - Post Discharge Activity
--- NOTE | 2019-12-01 22:56 | HP ---
Admitting History and Physical - Primary Care Physician PCP: Haja Limon - Admission Chief Complaint: Abdominal Pain History of Present Illness: This is a 29 y/o female with a PMHx of Prediabetes, GERD, Morbid Obesity s/p Gastric Sleeve (6 weeks ago). Who presents to the ED sent in from Dr Ruiz's office for abdominal pain, dehydration. Patient reports having NBNB emesis for 10 days, not being able to drink water. Patient reports since having her surgery she has been having epigastric pain. She states " i keep spitting up my saliva". Patient denies fever, cough, CP, palpitations, dysuria. Patient denies sick contacts or recent travel. History Source: Patient Limitations to Obtaining History: No Limitations - Past Medical History Gastrointestinal: Yes: GERD ...LMP: 10/22/19 ...: No Endocrine: Yes: Other (Prediabetes) - Past Surgical History Past Surgical History: Yes: Bariatric Surgery (Gastric Sleeve), , Tonsillectomy Additional Past Surgical History: IUD - Smoking History Smoking history: Never smoked Have you smoked in the past 12 months: No Aproximately how many cigarettes per day: 0 - Alcohol/Substance Use Hx Alcohol Use: No History of Substance Use: reports: None - Social History Usual Living Arrangement: Yes: With Spouse ADL: Independent 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 History of Recent Travel: No Home Medications - Allergies Allergies/Adverse Reactions: Allergies Allergy/AdvReac Type Severity Reaction Status Date / Time sumatriptan succinate Allergy Severe feeling of Verified 12/01/19 16:01 [From Treximet] throat closing naproxen sodium Allergy Verified 12/01/19 16:01 [From Treximet] - Home Medications Home Medications: Ambulatory Orders NK [No Known Home Medication] 12/01/19 Family Medical History Family History: As Documented Family Hx Cancer: Grandmother (maternal) (Stomach) Family Hx Diabetes: Mother Review of Systems - Review of Systems Constitutional: reports: Chills, Loss of Appetite Eyes: reports: No Symptoms HENT: reports: No Symptoms Neck: reports: No Symptoms Cardiovascular: reports: No Symptoms Respiratory: reports: No Symptoms Gastrointestinal: reports: Abdominal Pain, Nausea, Vomiting Genitourinary: reports: Other (Vaginal Discharge) Breasts: reports: No Symptoms Reported Musculoskeletal: reports: No Symptoms Integumentary: reports: No Symptoms Neurological: reports: No Symptoms Endocrine: reports: No Symptoms Hematology/Lymphatic: reports: No Symptoms Psychiatric: reports: No Symptoms Pain Intensity: 8 Physical Examination Vital Signs: Vital Signs Temperature 98.2 F 12/01/19 18:35 Pulse Rate 63 12/01/19 18:35 Respiratory Rate 20 12/01/19 18:35 Blood Pressure 117/74 12/01/19 18:35 O2 Sat by Pulse Oximetry (%) 99 12/01/19 18:35 Constitutional: Yes: Mild Distress, Obese Eyes: Yes: Conjunctiva Clear, EOM Intact, PERRL HENT: Yes: Atraumatic, Normocephalic, Other (dry mucous membranes) Neck: Yes: WNL, Supple, Trachea Midline Cardiovascular: Yes: Regular Rate and Rhythm, S1, S2 Respiratory: Yes: WNL, Regular, CTA Bilaterally Gastrointestinal: Yes: Normal Bowel Sounds, Abdomen, Obese, Tenderness, Epigastrium, Other (surgical scars- healed) ...Rectal Exam: Yes: Deferred Renal/: Yes: WNL Breast(s): Yes: WNL Musculoskeletal: Yes: WNL Extremities: Yes: WNL Edema: No Peripheral Pulses WNL: Yes Integumentary: Yes: WNL Neurological: Yes: WNL, Alert, Oriented ...Motor Strength: WNL Psychiatric: Yes: WNL, Alert, Oriented Labs: CBC, BMP 12/01/19 15:15 12/01/19 15:15 Laboratory Results - last 24 hr 12/01/19 12/01/19 12/01/19 15:15 15:15 15:15 WBC 7.7 RBC 5.10 Hgb 14.0 Hct 42.7 D MCV 83.8 MCH 27.5 MCHC 32.9 RDW 14.9 Plt Count 227 MPV 9.8 Absolute Neuts (auto) 5.4 Neutrophils % 69.5 Lymphocytes % 21.0 Monocytes % 7.9 Eosinophils % 1.2 Basophils % 0.4 Nucleated RBC % 0 Sodium 140 Potassium 4.2 Chloride 103 Carbon Dioxide 25 Anion Gap 12 BUN 6.7 L Creatinine 0.5 L Est GFR (CKD-EPI)AfAm 153.73 Est GFR (CKD-EPI)NonAf 132.64 Random Glucose 82 Calcium 9.5 Total Bilirubin 0.6 AST 60 H ALT 99 H Alkaline Phosphatase 71 Creatine Kinase 58 Troponin I < 0.02 Total Protein 7.8 Albumin 3.8 Lipase 600 H Serum , Qual Negative Urine Color Urine Appearance Urine pH Ur Specific [place] Urine Protein Urine Glucose (UA) Urine Ketones Urine Blood Urine Nitrite Urine Bilirubin Urine Urobilinogen Ur Leukocyte Esterase Urine WBC (Auto) Urine RBC (Auto) Urine Casts (Auto) U Pathogenic Cast Auto U Epithel Cells (Auto) Urine Bacteria (Auto) 12/01/19 12/01/19 15:20 15:35 WBC RBC Hgb Hct MCV MCH MCHC RDW Plt Count MPV Absolute Neuts (auto) Neutrophils % Lymphocytes % Monocytes % Eosinophils % Basophils % Nucleated RBC % Sodium Potassium Chloride Carbon Dioxide Anion Gap BUN Creatinine Est GFR (CKD-EPI)AfAm Est GFR (CKD-EPI)NonAf Random Glucose Calcium Total Bilirubin AST ALT Alkaline Phosphatase Creatine Kinase Cancelled Troponin I Cancelled Total Protein Albumin Lipase Serum , Qual Urine Color Dk yellow Urine Appearance Cloudy Urine pH 6.5 Ur Specific [place] 1.038 H Urine Protein 1+ H Urine Glucose (UA) Negative Urine Ketones 4+ H Urine Blood Trace Urine Nitrite Negative Urine Bilirubin 2+ H Urine Urobilinogen 1.0 Ur Leukocyte Esterase Trace Urine WBC (Auto) 247 Urine RBC (Auto) 39.8 Urine Casts (Auto) 29 U Pathogenic Cast Auto Negative U Epithel Cells (Auto) >36 Urine Bacteria (Auto) 5456 Intake & Output 11/29/19 11/30/19 12/01/19 12/02/19 23:59 23:59 23:59 23:59 Weight 97.976 kg 97.976 kg Imaging - Results Chest X-ray: Image Reviewed Cat Scan: Report Reviewed, Image Reviewed EKG: Image Reviewed Problem List - Problems (1) Pancreatitis Assessment/Plan: Lipase 600 No leukocytosis, no neutrophila CTAP image, report reviewed Appreciate GI consult Continue IVF Monitor CBC, CMP NPO OfirmevStephanie prn Monitor vitals Code(s): K85.90 - ACUTE PANCREATITIS WITHOUT NECROSIS OR INFECTION, UNSP Qualifiers: Chronicity: acute Pancreatitis type: other Acute pancreatitis complication: no infection or necrosis Qualified Code(s): K85.80 - Other acute pancreatitis without necrosis or infection (2) Elevated lipase Assessment/Plan: Likely secondary to recent surgery vs early pancreatitis CTAP reviewed Monitor CBC, CMP Code(s): R74.8 - ABNORMAL LEVELS OF OTHER SERUM ENZYMES (3) GERD (gastroesophageal reflux disease) Assessment/Plan: Continue PPI Code(s): K21.9 - GASTRO-ESOPHAGEAL REFLUX DISEASE WITHOUT ESOPHAGITIS (4) Prediabetes Assessment/Plan: stable Monitor CMP Code(s): R73.03 - PREDIABETES (5) Morbid obesity due to excess calories Assessment/Plan: s/p Gastric Sleeve Code(s): E66.01 - MORBID (SEVERE) OBESITY DUE TO EXCESS CALORIES (6) Encounter for screening laboratory testing for COVID-19 virus Assessment/Plan: Low Risk COVID PCR-pending Isolation Precautions Code(s): Z11.59 - ENCOUNTER FOR SCREENING FOR OTHER VIRAL DISEASES Assessment/Plan This is a 29 y/o female with a PMHx of Prediabetes, GERD, Morbid Obesity s/p Gastric Sleeve (6 weeks ago). Admitted to [facility] for Pancreatitis for further evaluation of their emergent condition. Plan: See Problem List FEN LR@150ml/hr Replete lytes prn NPO DVT ppx OOB SCDs Heparin SQ Dispo: Requires Inpatient Care Visit type - Emergency Visit Emergency Visit: Yes ED Registration Date: 12/01/19 Care time: The patient presented to the Emergency Department on the above date and was hospitalized for further evaluation of their emergent condition. - New Patient This patient is new to me today: Yes Date on this admission: 12/01/19 - Critical Care Critical Care patient: No
[2019-12-01] MEDS: LACTATED RINGERS SOLUTION 1,000 ML IV SCH (23:00)
--- NOTE | 2019-12-02 07:13 | PN ---
Progress Note, Physician - Current Medication List Current Medications: Active Medications Lactated Ringer's (Lactated Ringers Solution) 1,000 mls @ 150 mls/hr IV ASDIR [facility] Last Admin: 12/01/19 23:00 Dose: 150 mls/hr Documented by: Pantoprazole Sodium (Protonix Iv) 40 mg IVPUSH DAILY [facility] - Objective Vital Signs: Vital Signs Temperature 98.7 F 12/02/19 06:00 Pulse Rate 68 12/02/19 06:00 Respiratory Rate 20 12/02/19 06:00 Blood Pressure 141/74 12/02/19 06:00 O2 Sat by Pulse Oximetry (%) 97 12/02/19 06:00 Cardiovascular: Yes: Regular Rate and Rhythm Respiratory: Yes: Regular Gastrointestinal: Yes: Normal Bowel Sounds, Soft Edema: No Labs: CBC, BMP 12/01/19 15:15 12/01/19 15:15 Problem List - Problems (1) Pancreatitis Assessment/Plan: Lipase 600 CTAP noted GI consult Continue IVF Monitor CBC, CMP NPO Ofirmev, Zofran prn Monitor vitals Likely secondary to recent surgery vs early pancreatitis Code(s): K85.90 - ACUTE PANCREATITIS WITHOUT NECROSIS OR INFECTION, UNSP Qualifiers: Chronicity: acute Pancreatitis type: other Acute pancreatitis complication: no infection or necrosis Qualified Code(s): K85.80 - Other acute pancreatitis without necrosis or infection (2) S/P laparoscopic sleeve gastrectomy Assessment/Plan: surgical follow up Code(s): Z98.84 - BARIATRIC SURGERY STATUS (3) Prediabetes Code(s): R73.03 - PREDIABETES
[2019-12-02] MEDS ORDERED: MORPHINE SULFATE 2 MG/ML VIAL IVPUSH PRN (07:51)
[2019-12-02 08:05] LABS: ALBUMIN 2.9 g/dl (3.4-5.0); BLOOD UREA NITROGEN 4.1 mg/dL (7-18); POTASSIUM 3.7 mmol/L (3.5-5.1)
[2019-12-02 08:10] LABS: BILIRUBIN,TOTAL 1.3 mg/dL (0.2-1); CREATININE 0.5 mg/dL (0.55-1.3); TOT PROT 5.9 g/dl (6.4-8.2)
[2019-12-02 09:00] LABS: BASO % 0.6 % (0-2.0); EOS % 1.6 % (0-4.5); HEMATOCRIT 36.1 % (32.4-45.2); HEMOGLOBIN 11.7 GM/dL (10.7-15.3); LYMPH % 31.4 % (8-40); MCH 27.3 pg (25.7-33.7); MCHC 32.4 g/dl (32.0-36.0); MEAN CELL VOLUME 84.3 fl (80-96); MEAN PLT VOLUME 10.5 fl (7.5-11.1); MONO % 8.7 % (3.8-10.2); NEUT % 57.7 % (42.8-82.8); PLATELET COUNT 180 K/MM3 (134-434); RBC 4.28 M/mm3 (3.60-5.2); RDW 15.3 % (11.6-15.6); WHITE BLOOD COUNT 6.7 K/mm3 (4.0-10.0)
[2019-12-02] MEDS: PANTOPRAZOLE SODIUM 40 MG VIAL IVPUSH SCH (09:20)
[2019-12-02] MEDS: LACTATED RINGERS SOLUTION 1,000 ML IV SCH (12:41)
--- NOTE | 2019-12-02 16:55 | EKG ---
Test Reason : Blood Pressure : / mmHG Vent. Rate : 055 BPM Atrial Rate : 055 BPM P-R Int : 170 ms QRS Dur : 082 ms QT Int : 422 ms P-R-T Axes : 011 057 036 degrees QTc Int : 403 ms SINUS BRADYCARDIA OTHERWISE NORMAL ECG WHEN COMPARED WITH ECG OF 11-MAY-2014 12:46, PREMATURE VENTRICULAR COMPLEXES ARE NO LONGER PRESENT NONSPECIFIC T WAVE ABNORMALITY NOW EVIDENT IN LATERAL LEADS Confirmed by FANG CHEW, TANIKA ([id number]) on 12/02/2019 4:55:21 PM Referred By: Confirmed By:TANIKA HEADLEY MD
--- NOTE | 2019-12-02 17:29 | CON.GI ---
Consult - History of Present Illness History of Present Illness: 29 y/o female with a PMHx of Prediabetes, GERD, Morbid Obesity s/p Gastric Sleeve (6 weeks ago). Who presents to the ED because abdominal pain, dehydrati on. Patient reports having NBNB emesis for 10 days, not being able to drink water. Patient reports since having her surgery she has been having epigastric pain. She states " i keep spitting up my saliva". Patient denies fever, cough, CP, palpitations, dysuria. 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 History of Recent Travel: No Home Medications - Allergies Allergies/Adverse Reactions: Allergies Allergy/AdvReac Type Severity Reaction Status Date / Time sumatriptan succinate Allergy Severe feeling of Verified 12/01/19 16:01 [From Treximet] throat closing naproxen sodium Allergy Verified 12/01/19 16:01 [From Treximet] - Home Medications Home Medications: Ambulatory Orders NK [No Known Home Medication] 12/01/19 Family Medical History Family Hx Cancer: Grandmother (maternal) (Stomach) Family Hx Diabetes: Mother Physical Exam-GI Vital Signs: Vital Signs Temperature 98.3 F 12/02/19 14:00 Pulse Rate 49 L 12/02/19 14:00 Respiratory Rate 18 12/02/19 14:00 Blood Pressure 112/68 12/02/19 14:00 O2 Sat by Pulse Oximetry (%) 98 12/02/19 12:00 Constitutional: Yes: Obese Eyes: Yes: Conjunctiva Clear HENT: Yes: Atraumatic Neck: Yes: Supple Cardiovascular: Yes: Regular Rate and Rhythm Respiratory: Yes: CTA Bilaterally ...Palpate: Yes: Soft, Tenderness, Epigastium. No: Firm/Rigid, Guarding, Hepatomegaly, Mass, Pulsatile Mass, Splenomegaly Labs: CBC, BMP 12/02/19 06:15 12/02/19 06:15 Problem List - Problems (1) Intractable nausea and vomiting Assessment/Plan: r/o secondary to dyspepsia, gastritis, peptic ulcer disease R> IV Pantoprzole 40mg daily IV Reglan 10mg ice chips Code(s): R11.2 - NAUSEA WITH VOMITING, UNSPECIFIED
[2019-12-02] MEDS: METOCLOPRAMIDE HCL INJECTION 10 MG/2 ML VIAL IVPB SCH (17:45)
--- NOTE | 2019-12-02 19:06 | PN ---
Progress Note (short form) - Note Progress Note: discussed with dr bravo he is suggesting mrcp and us to rule out gallstone pancreatitis Problem List - Problems (1) Pancreatitis Code(s): K85.90 - ACUTE PANCREATITIS WITHOUT NECROSIS OR INFECTION, UNSP Qualifiers: Chronicity: acute Pancreatitis type: other Acute pancreatitis complication: no infection or necrosis Qualified Code(s): K85.80 - Other acute pancreatitis without necrosis or infection (2) S/P laparoscopic sleeve gastrectomy Code(s): Z98.84 - BARIATRIC SURGERY STATUS (3) Prediabetes Code(s): R73.03 - PREDIABETES
--- NOTE | 2019-12-02 21:56 | CONSULT ---
Consult Consult Specialty:: Bariatric Surgery Reason for Consultation:: Nausea. Difficulty tolerating diet - History of Present Illness Chief Complaint: Nausea. Difficulty tolerating diet History of Present Illness: 29 female seen for nausea and difficulty tolerating PO diet S/P recent sleeve gastrectomy 6 weeks ago Started having symptoms approximately 1 week ago Seen by GI Sent to ER Denies fevers/diarrhea Nonspecific abdominal pain - History Source History Provided By: Patient, Medical Record - Past Medical History Gastrointestinal: Yes: GERD ...LMP: 10/22/19 ...: No Endocrine: Yes: Other (Prediabetes) - Past Surgical History Past Surgical History: Yes: Bariatric Surgery (Gastric Sleeve), , Tonsillectomy - Alcohol/Substance Use Hx Alcohol Use: No History of Substance Use: reports: None - Smoking History Smoking history: Never smoked Have you smoked in the past 12 months: No Aproximately how many cigarettes per day: 0 - Social History ADL: Independent 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 History of Recent Travel: No Home Medications - Allergies Allergies/Adverse Reactions: Allergies Allergy/AdvReac Type Severity Reaction Status Date / Time sumatriptan succinate Allergy Severe feeling of Verified 12/01/19 16:01 [From Treximet] throat closing naproxen sodium Allergy Verified 12/01/19 16:01 [From Treximet] - Home Medications Home Medications: Ambulatory Orders NK [No Known Home Medication] 12/01/19 Family Medical History Family Hx Cancer: Grandmother (maternal) (Stomach) Family Hx Diabetes: Mother Review of Systems - Review of Systems Constitutional: denies: Chills, Fever HENT: reports: No Symptoms Cardiovascular: reports: No Symptoms Respiratory: reports: No Symptoms Gastrointestinal: reports: Nausea Neurological: reports: No Symptoms Pain Intensity: 3 Physical Exam Vital Signs: Vital Signs Temperature 98.3 F 12/02/19 14:00 Pulse Rate 49 L 12/02/19 14:00 Respiratory Rate 18 12/02/19 14:00 Blood Pressure 112/68 12/02/19 14:00 O2 Sat by Pulse Oximetry (%) 98 12/02/19 12:00 Constitutional: Yes: Calm Cardiovascular: Yes: WNL Respiratory: Yes: Regular Gastrointestinal: Yes: Soft, Tenderness, Epigastrium, Other (wounds c/d/i). No: Distention, Tenderness, Rebound Wound/Incision: Yes: Clean/Dry Neurological: Yes: Alert, Oriented Labs: CBC,CMP WBC 6.7 K/mm3 (4.0-10.0) 12/02/19 06:15 RBC 4.28 M/mm3 (3.60-5.2) 12/02/19 06:15 Hgb 11.7 GM/dL (10.7-15.3) 12/02/19 06:15 Hct 36.1 % (32.4-45.2) D 12/02/19 06:15 MCV 84.3 fl (80-96) 12/02/19 06:15 MCH 27.3 pg (25.7-33.7) 12/02/19 06:15 MCHC 32.4 g/dl (32.0-36.0) 12/02/19 06:15 RDW 15.3 % (11.6-15.6) 12/02/19 06:15 Plt Count 180 K/MM3 (134-434) D 12/02/19 06:15 MPV 10.5 fl (7.5-11.1) 12/02/19 06:15 Absolute Neuts (auto) 3.9 K/mm3 (1.5-8.0) 12/02/19 06:15 Neutrophils % 57.7 % (42.8-82.8) 12/02/19 06:15 Lymphocytes % 31.4 % (8-40) D 12/02/19 06:15 Monocytes % 8.7 % (3.8-10.2) 12/02/19 06:15 Eosinophils % 1.6 % (0-4.5) 12/02/19 06:15 Basophils % 0.6 % (0-2.0) 12/02/19 06:15 Nucleated RBC % 0 % (0-0) 12/02/19 06:15 Sodium 142 mmol/L (136-145) 12/02/19 06:15 Potassium 3.7 mmol/L (3.5-5.1) 12/02/19 06:15 Chloride 107 mmol/L (98-107) 12/02/19 06:15 Carbon Dioxide 23 mmol/L (21-32) 12/02/19 06:15 Anion Gap 12 MMOL/L (8-16) 12/02/19 06:15 BUN 4.1 mg/dL (7-18) L 12/02/19 06:15 Creatinine 0.5 mg/dL (0.55-1.3) L 12/02/19 06:15 Est GFR (CKD-EPI)AfAm 153.73 12/02/19 06:15 Est GFR (CKD-EPI)NonAf 132.64 12/02/19 06:15 Random Glucose 72 mg/dL (74-106) L 12/02/19 06:15 Calcium 8.0 mg/dL (8.5-10.1) L 12/02/19 06:15 Total Bilirubin 1.3 mg/dL (0.2-1) H 12/02/19 06:15 AST 32 U/L (15-37) 12/02/19 06:15 ALT 68 U/L (13-61) H 12/02/19 06:15 Alkaline Phosphatase 56 U/L (45-117) 12/02/19 06:15 Creatine Kinase Cancelled 12/01/19 15:20 Troponin I Cancelled 12/01/19 15:20 Total Protein 5.9 g/dl (6.4-8.2) L 12/02/19 06:15 Albumin 2.9 g/dl (3.4-5.0) L 12/02/19 06:15 Lipase 703 U/L (73-393) H 12/02/19 06:15 Serum , Qual Negative 12/01/19 15:15 Imaging - Results Cat Scan: Report Reviewed, Image Reviewed Problem List - Problems (1) Pancreatitis Code(s): K85.90 - ACUTE PANCREATITIS WITHOUT NECROSIS OR INFECTION, UNSP Qualifiers: Chronicity: acute Pancreatitis type: other Acute pancreatitis complication: no infection or necrosis Qualified Code(s): K85.80 - Other acute pancreatitis without necrosis or infection Assessment/Plan 29 female with evidence of pancreatitis Elevated lipase and LFTs CT A/P shows sleeve gastrectomy; no evidence of obstruction or leak; contrast to bowel- normal post sleeve gastrectomy anatomy Likely biliary pancreatitis Discussed in detail with PCP and patient and her family Recommended U/S abdomen and MRCP NPO IV fluids If stone seen in common bile duct on MRCP, recommend GI for ERCP, bowel rest, IV hydration, serial labd including LFTs and lipase levels and then eventual cholecystectomy by General Surgery once symptoms and labs normalize If no stone seen in common bile duct, recommend bowel rest, IV hydration, serial labs including LFTs and lipase levels and eventual cholecystectomy by General Surgery once symptoms and labs normalize Patient understands and agrees with plan
[2019-12-03] MEDS: LACTATED RINGERS SOLUTION 1,000 ML IV SCH ×4 (00:30→23:00)
[2019-12-03] MEDS: METOCLOPRAMIDE HCL INJECTION 10 MG/2 ML VIAL IVPB SCH ×3 (01:03→18:13)
--- NOTE | 2019-12-03 09:33 | PN ---
Progress Note, Physician Chief Complaint: AWAKE ALERT C/O ABDOMINAL PRESSURE LIKE PAIN +NAUSEA EVENTS AND NOTES REVIEWED - Current Medication List Current Medications: Active Medications Lactated Ringer's (Lactated Ringers Solution) 1,000 mls @ 150 mls/hr IV ASDIR [facility] Last Admin: 12/03/19 06:19 Dose: 150 mls/hr Documented by: Metoclopramide HCl (Reglan Injection -) 10 mg IVPB Q8H [facility] Last Admin: 12/03/19 01:03 Dose: 10 mg Documented by: Morphine Sulfate (Morphine Sulfate) 2 mg IVPUSH Q4H PRN PRN Reason: PAIN LEVEL 6-10 Last Admin: 12/03/19 00:31 Dose: 2 mg Documented by: Ondansetron HCl (Zofran Injection) 4 mg IVPB Q4H PRN PRN Reason: NAUSEA AND/OR VOMITING Pantoprazole Sodium (Protonix Iv) 40 mg IVPUSH DAILY [facility] Last Admin: 12/02/19 09:20 Dose: 40 mg Documented by: - Objective Vital Signs: Vital Signs Temperature 98.7 F 12/03/19 05:32 Pulse Rate 76 12/03/19 05:32 Respiratory Rate 20 12/03/19 05:32 Blood Pressure 131/79 12/03/19 05:32 O2 Sat by Pulse Oximetry (%) 98 12/03/19 05:32 Constitutional: Yes: Mild Distress Cardiovascular: Yes: Regular Rate and Rhythm Respiratory: Yes: Regular Gastrointestinal: Yes: Soft, Tenderness Musculoskeletal: Yes: WNL Extremities: Yes: WNL Integumentary: Yes: WNL Wound/Incision: Yes: Clean/Dry Neurological: Yes: WNL ...Motor Strength: WNL Psychiatric: Yes: WNL Labs: CBC, BMP 12/02/19 06:15 12/02/19 06:15 Problem List - Problems (1) Elevated lipase Code(s): R74.8 - ABNORMAL LEVELS OF OTHER SERUM ENZYMES (2) Intractable nausea and vomiting Code(s): R11.2 - NAUSEA WITH VOMITING, UNSPECIFIED (3) Pancreatitis Code(s): K85.90 - ACUTE PANCREATITIS WITHOUT NECROSIS OR INFECTION, UNSP Qualifiers: Chronicity: acute Pancreatitis type: other Acute pancreatitis complicat ion: no infection or necrosis Qualified Code(s): K85.80 - Other acute pancreatitis without necrosis or infection Assessment/Plan NPO IV FLUIDS ANTIEMETICS MRCP PENDING SURGERY F/U PAIN CONTROL
[2019-12-03] MEDS: PANTOPRAZOLE SODIUM 40 MG VIAL IVPUSH SCH (11:52)
[2019-12-03] MEDS: ONDANSETRON 4 MG/2 ML VIAL IVPB PRN ×2 (12:09→18:12)
--- NOTE | 2019-12-03 13:17 | CONSULT ---
Consult - text type - Consultation Consultation Note: Patient reported to still have nausea Lipase levels increased Ultrasound shows thick walled gallbladder and findings suspicious for acute cholecystitis Awaiting MRCP GI for possible ERCP pending MRCP findings Eventual cholecystectomy by General Surgery
--- NOTE | 2019-12-03 17:26 | PN.GI ---
GI Progress Note Subjective: still with nausea, no vomiting - Objective Vital Signs: Vital Signs Temperature 99.1 F 12/03/19 14:37 Pulse Rate 44 L 12/03/19 14:37 Respiratory Rate 12/03/19 14:37 Blood Pressure 123/79 12/03/19 14:37 O2 Sat by Pulse Oximetry (%) 98 12/03/19 05:32 Constitutional: Well Nourished Eyes: Yes: Conjunctiva Clear HENT: Yes: Atraumatic Neck: Yes: Trachea Midline Cardiovascular: Yes: Regular Rate and Rhythm Respiratory: Yes: CTA Bilaterally ...Palpate: Yes: Soft. No: Firm/Rigid, Guarding, Hepatomegaly, Mass, Pulsatile Mass, Splenomegaly, Tenderness Labs: CBC, BMP 12/02/19 06:15 12/02/19 06:15 Problem List - Problems (1) Intractable nausea and vomiting Assessment/Plan: r/o viral gastritis, gastroparesis r>continue Reglan add Zofran clear liquids Code(s): R11.2 - NAUSEA WITH VOMITING, UNSPECIFIED
[2019-12-04] MEDS: METOCLOPRAMIDE HCL INJECTION 10 MG/2 ML VIAL IVPB SCH ×2 (01:03→09:07)
[2019-12-04] MEDS: ONDANSETRON 4 MG/2 ML VIAL IVPB PRN (02:23)
[2019-12-04] MEDS ORDERED: PROCHLORPERAZINE INJECTION 10 MG/2 ML VIAL IVPB ONE (03:57)
[2019-12-04] MEDS: LACTATED RINGERS SOLUTION 1,000 ML IV SCH ×2 (09:07→18:37)
[2019-12-04] MEDS: PANTOPRAZOLE SODIUM 40 MG VIAL IVPUSH SCH (09:08)
--- NOTE | 2019-12-04 10:45 | CONSULT ---
- Consultation REQUESTING PROVIDER: Nikolay Limon MD CONSULT REQUEST: We have been asked to surgically evaluate this patient for 15 or more days of n/v/abdominal pain. PCP:Haja Limon HISTORY OF PRESENT ILLNESS: KIRILL who is a 29 y/o female s/p gastric sleeve surgery 10/18/2019 at [facility] by Dr. Paul Gallegos; she was sent to the ED for evaluation of 15 or more days of nausea and vomiting and abdominal pain and drooling and inability to tolerate any oral intake; she states she has not felt " right " since her surgery; she does state she has lost weight; she has no FFI intolerance because she has no consumed anything other than essentially clear liquids at best. She denies fever,chills or any other GI c/o's; she states she was " perfectly well " prior to surgery and has no knowledge that she has gallstones on any imaging studies in the past. She denies dark urine; light stools. PMHx: none PSHx: C-S; tonsillectomy Home Medications Medication Instructions Recorded NK [No Known Home Medication] 12/01/19 Allergies Allergy/AdvReac Type Severity Reaction Status Date / Time sumatriptan succinate Allergy Severe feeling of Verified 12/01/19 16:01 [From Treximet] throat closing naproxen sodium Allergy Verified 12/01/19 16:01 [From Treximet] REVIEW OF SYSTEMS: CONSTITUTIONAL: Absent: fever, chills, diaphoresis, generalized weakness, malaise, loss of appetite, weight change CARDIOVASCULAR: Absent: chest pain, syncope, palpitations, irregular heart rate, lightheadedness, peripheral edema RESPIRATORY: Absent: cough, shortness of breath, dyspnea with exertion, wheezing, stridor, hemoptysis GASTROINTESTINAL: Absent: abdominal pain, abdominal distension, nausea, vomiting, diarrhea, constipation, melena, hematochezia GENITOURINARY: Absent: dysuria, frequency, urgency, hesitancy, hematuria, flank pain, genital pain MUSCULOSKELETAL: Absent: myalgia, arthralgia, joint swelling, back pain, neck pain SKIN: Absent: rash, itching, pallor HEMATOLOGIC/IMMUNOLOGIC: Absent: easy bleeding, easy bruising, lymphadenopathy NEUROLOGIC: Absent: headache, focal weakness, paresthesias, dizziness, unsteady gait, seizure, mental status changes, bladder or bowel incontinence PSYCHIATRIC: Absent: anxiety, depression, suicidal or homicidal ideation, hallucinations. PHYSICAL EXAM: GENERAL: Awake, alert, and fully oriented, in no acute distress. HEAD: Normal with no signs of trauma. EYES: PERRL, sclera anicteric, conjunctiva clear. HEART: Regular rate and rhythm. No murmurs ABDOMEN: Soft, nontender, not distended, normoactive bowel sounds, no guarding, no rebound, no masses. No organomegaly. Healed port sites; no evidence of an acute surgical abdomen. MUSCULOSKELETAL: Normal ROM at all joints. No bony deformities or tenderness. No CVA tenderness. UPPER EXTREMITIES: 2+ pulses, warm, well-perfused. No cyanosis. Cap refill <2 seconds. No peripheral edema. LOWER EXTREMITIES: 2+ pulses, warm, well-perfused. No calf tenderness. No peripheral edema. NEUROLOGICAL: Normal speech, gait not observed. PSYCH: Cooperative. Good eye contact. Appropriate mood and affect. SKIN: Warm, dry, normal turgor, no rashes or lesions noted. Vital Signs Temperature 98.7 F 12/04/19 10:22 Pulse Rate 47 L 12/04/19 10:22 Respiratory Rate 16 12/04/19 10:22 Blood Pressure 125/75 12/04/19 10:22 O2 Sat by Pulse Oximetry (%) 95 12/04/19 10:22 Lab Results WBC 6.7 K/mm3 (4.0-10.0) 12/02/19 06:15 RBC 4.28 M/mm3 (3.60-5.2) 12/02/19 06:15 Hgb 11.7 GM/dL (10.7-15.3) 12/02/19 06:15 Hct 36.1 % (32.4-45.2) D 12/02/19 06:15 MCV 84.3 fl (80-96) 12/02/19 06:15 MCHC 32.4 g/dl (32.0-36.0) 12/02/19 06:15 RDW 15.3 % (11.6-15.6) 12/02/19 06:15 Plt Count 180 K/MM3 (134-434) D 12/02/19 06:15 Sodium 142 mmol/L (136-145) 12/02/19 06:15 Potassium 3.7 mmol/L (3.5-5.1) 12/02/19 06:15 Chloride 107 mmol/L (98-107) 12/02/19 06:15 Carbon Dioxide 23 mmol/L (21-32) 12/02/19 06:15 Anion Gap 12 MMOL/L (8-16) 12/02/19 06:15 BUN 4.1 mg/dL (7-18) L 12/02/19 06:15 Creatinine 0.5 mg/dL (0.55-1.3) L 12/02/19 06:15 Random Glucose 72 mg/dL (74-106) L 12/02/19 06:15 Calcium 8.0 mg/dL (8.5-10.1) L 12/02/19 06:15 Imaging w/u to date reviewed. IMP: Post gastric sleeve nausea/dysphagia/and upper abdominal pain; doubt clinical acute pancreatitis and or cholecystitis. PLAN: Suggest NPO/IVF/Zofran/PPI; ? HIDA scan ?; check GB EF; ? motility study ?. Theron Matute MD FACS
--- NOTE | 2019-12-04 11:18 | PN.GI ---
GI Progress Note Subjective: Persistent nausea and retching States that she cannot tolerate liquids. has been persistent for 2 weeks now Describes intermittent pain from RUQ radiating to the mid abdomen US: Cholelithiasis with thick walled gallbladder UGIS: normal appearing gastric sleeve surgery CT scan: underdistention of left colon and malpositioned IUD MRCP: Subtle peripancreatic edema, pericholecystic/periportal edema of unclear etiology - Objective Vital Signs: Vital Signs Temperature 98.7 F 12/04/19 10:22 Pulse Rate 47 L 12/04/19 10:22 Respiratory Rate 16 12/04/19 10:22 Blood Pressure 125/75 12/04/19 10:22 O2 Sat by Pulse Oximetry (%) 95 12/04/19 10:22 Constitutional: Calm, Moderate Distress Cardiovascular: Yes: Regular Rate and Rhythm Respiratory: Yes: CTA Bilaterally Gastrointestinal Inspection: No: Distention ...Auscultate: Yes: Normoactive Bowel Sounds ...Palpate: Yes: Soft, Tenderness (TTP mid abdomen, no byrd's or RUQ tenderness elicited.). No: Guarding, Hepatomegaly ...Percussion: No: Tympanitic Edema: No (No LE edema) Neurological: Yes: Alert Labs: CBC, BMP 12/02/19 06:15 12/02/19 06:15 Assessment/Plan Persistent nausea/vomiting s/p gastric sleeve ? motility dysfunction ? mild pancreatitis given MRI findings and mildly elevated lipase Gallbladder dysfunction being excluded Being evaluated by surgery Ordered labs for today Left message to d/w radiologist Dr. Gómez: review previous CT scan to assess upper abdominal vasculature
--- NOTE | 2019-12-04 11:18 | PN ---
Progress Note, Physician Chief Complaint: AWAKE ALERT ANXIOUS VOMITING NO FEVER OR CHILLS DENIES HEMATOCHEZIA - Current Medication List Current Medications: Active Medications Lactated Ringer's (Lactated Ringers Solution) 1,000 mls @ 150 mls/hr IV ASDIR [facility] Last Admin: 12/04/19 09:07 Dose: 150 mls/hr Documented by: Metoclopramide HCl (Reglan Injection -) 10 mg IVPB Q8H [facility] Last Admin: 12/04/19 09:07 Dose: 10 mg Documented by: Morphine Sulfate (Morphine Sulfate) 2 mg IVPUSH Q4H PRN PRN Reason: PAIN LEVEL 6-10 Last Admin: 12/03/19 00:31 Dose: 2 mg Documented by: Ondansetron HCl (Zofran Injection) 4 mg IVPB Q4H PRN PRN Reason: NAUSEA AND/OR VOMITING Last Admin: 12/04/19 02:23 Dose: 4 mg Documented by: Pantoprazole Sodium (Protonix Iv) 40 mg IVPUSH DAILY [facility] Last Admin: 12/04/19 09:08 Dose: 40 mg Documented by: - Objective Vital Signs: Vital Signs Temperature 98.7 F 12/04/19 10:22 Pulse Rate 47 L 12/04/19 10:22 Respiratory Rate 16 12/04/19 10:22 Blood Pressure 125/75 12/04/19 10:22 O2 Sat by Pulse Oximetry (%) 95 12/04/19 10:22 Constitutional: Yes: Moderate Distress Cardiovascular: Yes: Regular Rate and Rhythm Respiratory: Yes: CTA Bilaterally Gastrointestinal: Yes: Soft, Abdomen, Obese, Tenderness Genitourinary: Yes: WNL Musculoskeletal: Yes: WNL Extremities: Yes: WNL Edema: No Peripheral Pulses WNL: Yes Integumentary: Yes: WNL Wound/Incision: Yes: Clean/Dry Neurological: Yes: WNL ...Motor Strength: WNL Psychiatric: Yes: Other Labs: CBC, BMP 12/02/19 06:15 12/02/19 06:15 Problem List - Problems (1) Elevated lipase Code(s): R74.8 - ABNORMAL LEVELS OF OTHER SERUM ENZYMES (2) Intractable nausea and vomiting Code(s): R11.2 - NAUSEA WITH VOMITING, UNSPECIFIED (3) Pancreatitis Code(s): K85.90 - ACUTE PANCREATITIS WITHOUT NECROSIS OR INFECTION, UNSP Qualifiers: Qualified Code(s): K85.80 - Other acute pancreatitis without necrosis or infection Assessment/Plan IV FLUIDS CONTINUE CLEAR DIET DISCUSSED WITH SURGERY DR JULIAN AND GI DR BRADLEY WILL KEEP ON CLEAR DIET AND IV FLUIDS FOR NOW MRCP AND SONO DO NOT SHOW OBSTRUCTION PANCREATITIS WITH CHOLCYSTITIS? CHECKING LABS NOW ANTIEMETICS
[2019-12-04] MEDS ORDERED: ACETAMINOPHEN 1000 MG/100 ML VIAL (NON FORMULARY) IVPB PRN (11:19)
[2019-12-04] MEDS ORDERED: ONDANSETRON *ODT* 4 MG TABLET SL PRN (11:19)
[2019-12-04] MEDS: LORazepam 2 MG/ML SDV VIAL IVPUSH PRN (11:54)
[2019-12-04] MEDS: SIMETHICONE 80 MG TAB.CHEW (FP) PO PRN ×2 (11:54→16:23)
[2019-12-04 12:24] LABS: BASO % 0.6 % (0-2.0); EOS % 0.9 % (0-4.5); HEMATOCRIT 36.8 % (32.4-45.2); HEMOGLOBIN 12.4 GM/dL (10.7-15.3); LYMPH % 24.2 % (8-40); MCH 28.3 pg (25.7-33.7); MCHC 33.6 g/dl (32.0-36.0); MEAN CELL VOLUME 84.1 fl (80-96); MEAN PLT VOLUME 10.3 fl (7.5-11.1); MONO % 7.7 % (3.8-10.2); NEUT % 66.6 % (42.8-82.8); PLATELET COUNT 189 K/MM3 (134-434); RBC 4.38 M/mm3 (3.60-5.2); WHITE BLOOD COUNT 6.8 K/mm3 (4.0-10.0)
[2019-12-04 12:39] LABS: POTASSIUM 3.2 mmol/L (3.5-5.1)
[2019-12-04 12:52] LABS: ALBUMIN 3.1 g/dl (3.4-5.0); BILIRUBIN,DIRECT 0.2 mg/dL (0.0-0.2); BILIRUBIN,TOTAL 0.5 mg/dL (0.2-1); CALCIUM 8.4 mg/dL (8.5-10.1); CREATININE 0.5 mg/dL (0.55-1.3); TOT PROT 6.2 g/dl (6.4-8.2)
[2019-12-04 13:46] LABS: BLOOD UREA NITROGEN 2.2 mg/dL (7-18)
--- NOTE | 2019-12-04 13:49 | PN ---
Progress Note (short form) - Note Progress Note: D/W Dr. Gómez: Patent portal vein, splenic vein, celiac trunk
[2019-12-04] MEDS ORDERED: KCL 10 MEQ IVPB 10 MEQ/100 ML INFUS.BAG IVPB SCH (14:15)
[2019-12-04] MEDS: PROCHLORPERAZINE INJECTION 10 MG/2 ML VIAL IVPB PRN (21:41)
[2019-12-05] MEDS: LORazepam 2 MG/ML SDV VIAL IVPUSH PRN ×2 (01:56→22:00)
[2019-12-05] MEDS: LACTATED RINGERS SOLUTION 1,000 ML IV SCH ×3 (01:56→20:35)
[2019-12-05 08:45] LABS: ALBUMIN 2.8 g/dl (3.4-5.0); BILIRUBIN,TOTAL 0.7 mg/dL (0.2-1); CALCIUM 8.4 mg/dL (8.5-10.1); CREATININE 0.4 mg/dL (0.55-1.3); MAGNESIUM 1.5 mg/dL (1.8-2.4); POTASSIUM 3.3 mmol/L (3.5-5.1); TOT PROT 5.9 g/dl (6.4-8.2)
[2019-12-05 09:31] LABS: BLOOD UREA NITROGEN 1.4 mg/dL (7-18)
[2019-12-05] MEDS ORDERED: MAGNESIUM SULF 50% (8.12 MEQ/2 ML-1 GM VIAL) IVPB ONE (09:50)
[2019-12-05] MEDS ORDERED: KCL 10 MEQ IVPB 10 MEQ/100 ML INFUS.BAG IVPB SCH (10:00)
[2019-12-05] MEDS ORDERED: MAGNESIUM 1GM/D5W - 1 GM/100 ML IVPB IVPB ONE (10:00)
[2019-12-05] MEDS: PROCHLORPERAZINE INJECTION 10 MG/2 ML VIAL IVPB PRN ×2 (10:02→14:05)
[2019-12-05] MEDS: PANTOPRAZOLE SODIUM 40 MG VIAL IVPUSH SCH (10:02)
--- NOTE | 2019-12-05 13:25 | PN ---
Progress Note, Physician Chief Complaint: AWAKE ALERT SLIGHT IMPROVEMENT NO FEVER OR CHILLS VOMITING DECREASED - Current Medication List Current Medications: Active Medications Lactated Ringer's (Lactated Ringers Solution) 1,000 mls @ 150 mls/hr IV ASDIR [facility] Last Admin: 12/05/19 10:01 Dose: 150 mls/hr Documented by: Lorazepam (Ativan Injection -) 1 mg IVPUSH BID PRN PRN Reason: ANXIETY Last Admin: 12/05/19 01:56 Dose: 1 mg Documented by: Ondansetron HCl (Zofran Injection) 4 mg IVPB Q4H PRN PRN Reason: NAUSEA AND/OR VOMITING Last Admin: 12/04/19 02:23 Dose: 4 mg Documented by: Ondansetron HCl (Zofran Odt -) 4 mg SL Q6H PRN PRN Reason: NAUSEA AND/OR VOMITING Pantoprazole Sodium (Protonix Iv) 40 mg IVPUSH DAILY [facility] Last Admin: 12/05/19 10:02 Dose: 40 mg Documented by: Prochlorperazine Edisylate (Compazine Injection -) 10 mg IVPB Q4H PRN PRN Reason: NAUSEA AND/OR VOMITING Last Admin: 12/05/19 10:02 Dose: 10 mg Documented by: Simethicone (Mylicon -) 80 mg PO Q4H PRN PRN Reason: GAS Last Admin: 12/04/19 16:23 Dose: 80 mg Documented by: - Objective Vital Signs: Vital Signs Temperature 98.7 F 12/05/19 11:00 Pulse Rate 49 L 12/05/19 11:00 Respiratory Rate 18 12/05/19 11:00 Blood Pressure 136/71 12/05/19 11:00 O2 Sat by Pulse Oximetry (%) 98 12/05/19 11:00 Constitutional: Yes: Mild Distress Cardiovascular: Yes: Regular Rate and Rhythm Respiratory: Yes: Regular Gastrointestinal: Yes: Soft, Abdomen, Obese Genitourinary: Yes: WNL Musculoskeletal: Yes: WNL Wound/Incision: Yes: Clean/Dry Neurological: Yes: WNL, Weakness Psychiatric: Yes: WNL Labs: CBC, BMP 12/04/19 11:40 12/05/19 06:51 Problem List - Problems (1) Elevated lipase Code(s): R74.8 - ABNORMAL LEVELS OF OTHER SERUM ENZYMES (2) Intractable nausea and vomiting Code(s): R11.2 - NAUSEA WITH VOMITING, UNSPECIFIED (3) Pancreatitis Code(s): K85.90 - ACUTE PANCREATITIS WITHOUT NECROSIS OR INFECTION, UNSP Qualifiers: Chronicity: acute Pancreatitis type: other Acute pancreatitis compli cation: no infection or necrosis Qualified Code(s): K85.80 - Other acute pancreatitis without necrosis or infection Assessment/Plan STOP THE MORPHINE AND PROTONIX USE TYLENOL IV AND PEPCID BID HIDA SCAN IN MORNING IV FLUIDS REPLETE KCL/MG COMPAZINE FOR N/V OOB TO CHAIR ATIVAN PRN
--- NOTE | 2019-12-05 18:35 | CONSULT ---
Consult - text type - Consultation Consultation Note: Patient still with nausea Abdominal pain RUQ/epigastric region NPO Recieving IV fluids Vital Signs Period Temp Pulse Resp BP Sys/Latif Pulse Ox Last 24 Hr 98.2 F-98.7 F 49-64 16-18 136-147/71-95 96-124 Abd soft, epigastric tenderness CBC,CMP WBC 6.8 K/mm3 (4.0-10.0) 12/04/19 11:40 RBC 4.38 M/mm3 (3.60-5.2) 12/04/19 11:40 Hgb 12.4 GM/dL (10.7-15.3) 12/04/19 11:40 Hct 36.8 % (32.4-45.2) 12/04/19 11:40 MCV 84.1 fl (80-96) 12/04/19 11:40 MCH 28.3 pg (25.7-33.7) 12/04/19 11:40 MCHC 33.6 g/dl (32.0-36.0) 12/04/19 11:40 RDW 15.0 % (11.6-15.6) 12/04/19 11:40 Plt Count 189 K/MM3 (134-434) 12/04/19 11:40 MPV 10.3 fl (7.5-11.1) 12/04/19 11:40 Absolute Neuts (auto) 4.5 K/mm3 (1.5-8.0) 12/04/19 11:40 Neutrophils % 66.6 % (42.8-82.8) 12/04/19 11:40 Lymphocytes % 24.2 % (8-40) D 12/04/19 11:40 Monocytes % 7.7 % (3.8-10.2) 12/04/19 11:40 Eosinophils % 0.9 % (0-4.5) 12/04/19 11:40 Basophils % 0.6 % (0-2.0) 12/04/19 11:40 Nucleated RBC % 0 % (0-0) 12/04/19 11:40 Sodium 139 mmol/L (136-145) 12/05/19 06:51 Potassium 3.3 mmol/L (3.5-5.1) L 12/05/19 06:51 Chloride 105 mmol/L (98-107) 12/05/19 06:51 Carbon Dioxide 22 mmol/L (21-32) 12/05/19 06:51 Anion Gap 12 MMOL/L (8-16) 12/05/19 06:51 BUN 1.4 mg/dL (7-18) L* 12/05/19 06:51 Creatinine 0.4 mg/dL (0.55-1.3) L 12/05/19 06:51 Est GFR (CKD-EPI)AfAm 165.44 12/05/19 06:51 Est GFR (CKD-EPI)NonAf 142.74 12/05/19 06:51 Random Glucose 65 mg/dL (74-106) L 12/05/19 06:51 Calcium 8.4 mg/dL (8.5-10.1) L 12/05/19 06:51 Magnesium 1.5 mg/dL (1.8-2.4) L 12/05/19 06:51 Total Bilirubin 0.7 mg/dL (0.2-1) 12/05/19 06:51 Direct Bilirubin 0.2 mg/dL (0.0-0.2) 12/04/19 11:40 AST 35 U/L (15-37) 12/05/19 06:51 ALT 58 U/L (13-61) 12/05/19 06:51 Alkaline Phosphatase 54 U/L (45-117) 12/05/19 06:51 Creatine Kinase Cancelled 12/01/19 15:20 Troponin I Cancelled 12/01/19 15:20 Total Protein 5.9 g/dl (6.4-8.2) L 12/05/19 06:51 Albumin 2.8 g/dl (3.4-5.0) L 12/05/19 06:51 Lipase 905 U/L (73-393) H 12/04/19 11:40 Serum , Qual Negative 12/01/19 15:15 Lipase continues to rise U/S and MRCP shows pericholecystic fluid, yandel hepatis edema, mild pancreatic inflammation, no CBD dilation or stone Discussed with Dr Limon Discussed with patient Planned for HIDA scan tomorrow Repeat labs Continue NPO IV fluids
[2019-12-05] MEDS: HEPARIN NA (PORCINE) 5,000 UNITS/ML 1ML VIAL SQ SCH (22:00)
[2019-12-05] MEDS: FAMOTIDINE 20 MG/50 ML IVPB 20 MG/50 ML MG IVPB SCH (22:00)
--- NOTE | 2019-12-06 08:32 | PN ---
Progress Note, Physician - Current Medication List Current Medications: Active Medications Heparin Sodium (Porcine) (Heparin -) 5,000 unit SQ BID [facility] Last Admin: 12/05/19 22:00 Dose: 5,000 unit Documented by: Lactated Ringer's (Lactated Ringers Solution) 1,000 mls @ 150 mls/hr IV ASDIR [facility] Last Admin: 12/05/19 20:35 Dose: 150 mls/hr Documented by: Famotidine/Sodium Chloride (Pepcid 20 Mg Premixed Ivpb -) 20 mg in 50 mls @ 100 mls/hr IVPB BID [facility] Last Admin: 12/05/19 22:00 Dose: 100 mls/hr Documented by: Lorazepam (Ativan Injection -) 1 mg IVPUSH BID PRN PRN Reason: ANXIETY Last Admin: 12/05/19 22:00 Dose: 1 mg Documented by: Ondansetron HCl (Zofran Injection) 4 mg IVPB Q4H PRN PRN Reason: NAUSEA AND/OR VOMITING Last Admin: 12/04/19 02:23 Dose: 4 mg Documented by: Ondansetron HCl (Zofran Odt -) 4 mg SL Q6H PRN PRN Reason: NAUSEA AND/OR VOMITING Prochlorperazine Edisylate (Compazine Injection -) 10 mg IVPB Q4H PRN PRN Reason: NAUSEA AND/OR VOMITING Last Admin: 12/05/19 14:05 Dose: 10 mg Documented by: Simethicone (Mylicon -) 80 mg PO Q4H PRN PRN Reason: GAS Last Admin: 12/04/19 16:23 Dose: 80 mg Documented by: - Objective Vital Signs: Vital Signs Temperature 98.6 F 12/06/19 05:11 Pulse Rate 58 L 12/06/19 05:11 Respiratory Rate 18 12/06/19 05:11 Blood Pressure 150/90 12/06/19 05:11 O2 Sat by Pulse Oximetry (%) 95 12/06/19 05:11 Cardiovascular: Yes: Regular Rate and Rhythm Respiratory: Yes: Regular, CTA Bilaterally Gastrointestinal: Yes: Normal Bowel Sounds, Soft, Tenderness, Epigastrium Labs: CBC, BMP 12/04/19 11:40 12/05/19 06:51 Problem List - Problems (1) Pancreatitis Assessment/Plan: CTAP noted GI consult Continue IVF Monitor CBC, CMP NPO Stephanie Zafar prn Monitor vitals Laboratory Tests 12/01/19 12/02/19 12/03/19 15:15 06:15 06:38 Lipase 600 H 703 H 878 H 12/04/19 11:40 Lipase 905 H Code(s): K85.90 - ACUTE PANCREATITIS WITHOUT NECROSIS OR INFECTION, UNSP Qualifiers: Chronicity: acute Pancreatitis type: other Acute pancreatitis complication: no infection or necrosis Qualified Code(s): K85.80 - Other acute pancreatitis without necrosis or infection (2) S/P laparoscopic sleeve gastrectomy Assessment/Plan: surgical follow up Code(s): Z98.84 - BARIATRIC SURGERY STATUS (3) Prediabetes Code(s): R73.03 - PREDIABETES (4) Abdominal pain Assessment/Plan: GI and surgery on board hida scan today Code(s): R10.9 - UNSPECIFIED ABDOMINAL PAIN
[2019-12-06 09:20] LABS: AMYLASE 100 U/L (25-115); LIPASE 1015 U/L (73-393)
[2019-12-06 09:30] LABS: BILIRUBIN,TOTAL 0.6 mg/dL (0.2-1); CALCIUM 8.6 mg/dL (8.5-10.1); CREATININE 0.4 mg/dL (0.55-1.3); MAGNESIUM 1.8 mg/dL (1.8-2.4); PHOSPHOROUS 3.4 mg/dL (2.5-4.9); POTASSIUM 3.4 mmol/L (3.5-5.1); TOT PROT 6.3 g/dl (6.4-8.2)
[2019-12-06 10:06] LABS: BLOOD UREA NITROGEN 1.6 mg/dL (7-18)
[2019-12-06] MEDS: HEPARIN NA (PORCINE) 5,000 UNITS/ML 1ML VIAL SQ SCH ×2 (11:44→22:19)
[2019-12-06] MEDS: FAMOTIDINE 20 MG/50 ML IVPB 20 MG/50 ML MG IVPB SCH ×2 (11:44→22:20)
[2019-12-06] MEDS: KCL 10 MEQ IVPB 10 MEQ/100 ML INFUS.BAG IVPB SCH ×2 (12:52→14:16)
[2019-12-06 13:25] LABS: BASO % 0.7 % (0-2.0); EOS % 1.5 % (0-4.5); HEMATOCRIT 38.5 % (32.4-45.2); HEMOGLOBIN 12.6 GM/dL (10.7-15.3); LYMPH % 26.4 % (8-40); MCH 27.4 pg (25.7-33.7); MCHC 32.8 g/dl (32.0-36.0); MEAN CELL VOLUME 83.5 fl (80-96); MEAN PLT VOLUME 10.4 fl (7.5-11.1); MONO % 7.9 % (3.8-10.2); NEUT % 63.5 % (42.8-82.8); PLATELET COUNT 192 K/MM3 (134-434); RBC 4.61 M/mm3 (3.60-5.2); RDW 15.2 % (11.6-15.6); WHITE BLOOD COUNT 6.2 K/mm3 (4.0-10.0)
[2019-12-06] MEDS: AMINO ACIDS 4.25%/D5W 1,000 ML IV SCH (14:17)
--- NOTE | 2019-12-06 15:16 | CONSULT ---
Consult - text type - Consultation Consultation Note: No acute events Still with nausea Vital Signs Period Temp Pulse Resp BP Sys/Latif Pulse Ox Last 24 Hr 98.6 F-98.7 F 50-58 18-18 137-154/87-95 95-124 Abd soft, mild epigastric tenderness CBC,CMP WBC 6.2 K/mm3 (4.0-10.0) 12/06/19 08:15 RBC 4.61 M/mm3 (3.60-5.2) 12/06/19 08:15 Hgb 12.6 GM/dL (10.7-15.3) 12/06/19 08:15 Hct 38.5 % (32.4-45.2) 12/06/19 08:15 MCV 83.5 fl (80-96) 12/06/19 08:15 MCH 27.4 pg (25.7-33.7) 12/06/19 08:15 MCHC 32.8 g/dl (32.0-36.0) 12/06/19 08:15 RDW 15.2 % (11.6-15.6) 12/06/19 08:15 Plt Count 192 K/MM3 (134-434) 12/06/19 08:15 MPV 10.4 fl (7.5-11.1) 12/06/19 08:15 Absolute Neuts (auto) 3.9 K/mm3 (1.5-8.0) 12/06/19 08:15 Neutrophils % 63.5 % (42.8-82.8) 12/06/19 08:15 Lymphocytes % 26.4 % (8-40) 12/06/19 08:15 Monocytes % 7.9 % (3.8-10.2) 12/06/19 08:15 Eosinophils % 1.5 % (0-4.5) 12/06/19 08:15 Basophils % 0.7 % (0-2.0) 12/06/19 08:15 Nucleated RBC % 0 % (0-0) 12/06/19 08:15 Sodium 138 mmol/L (136-145) 12/06/19 08:15 Potassium 3.4 mmol/L (3.5-5.1) L 12/06/19 08:15 Chloride 102 mmol/L (98-107) 12/06/19 08:15 Carbon Dioxide 24 mmol/L (21-32) 12/06/19 08:15 Anion Gap 12 MMOL/L (8-16) 12/06/19 08:15 BUN 1.6 mg/dL (7-18) L* 12/06/19 08:15 Creatinine 0.4 mg/dL (0.55-1.3) L 12/06/19 08:15 Est GFR (CKD-EPI)AfAm 165.44 12/06/19 08:15 Est GFR (CKD-EPI)NonAf 142.74 12/06/19 08:15 Random Glucose 68 mg/dL (74-106) L 12/06/19 08:15 Calcium 8.6 mg/dL (8.5-10.1) 12/06/19 08:15 Phosphorus 3.4 mg/dL (2.5-4.9) 12/06/19 08:15 Magnesium 1.8 mg/dL (1.8-2.4) 12/06/19 08:15 Total Bilirubin 0.6 mg/dL (0.2-1) 12/06/19 08:15 Direct Bilirubin 0.2 mg/dL (0.0-0.2) 12/04/19 11:40 AST 30 U/L (15-37) 12/06/19 08:15 ALT 57 U/L (13-61) 12/06/19 08:15 Alkaline Phosphatase 61 U/L (45-117) 12/06/19 08:15 Creatine Kinase Cancelled 12/01/19 15:20 Troponin I Cancelled 12/01/19 15:20 Total Protein 6.3 g/dl (6.4-8.2) L 12/06/19 08:15 Albumin 3.0 g/dl (3.4-5.0) L 12/06/19 08:15 Total Amylase 100 U/L (25-115) 12/06/19 08:15 Lipase 1015 U/L (73-393) H 12/06/19 08:15 Serum , Qual Negative 12/01/19 15:15 Lipase increased HIDA: Significant retention of tracer in the gallbladder at 2 hours Biliary Dyskinesia vs chronic cholecystitis vs sphincter of oddi dysfunction NPO IV Fluids Serial Abdominal exams and lipase levels Continue conservative management Will need cholecystectomy in the future If does not improve, may require percutaneous cholecystostomy Discussed with PCP, GI and patient Agree with plan
[2019-12-06] MEDS: MULTIVIT INJ. ADULT COMBO WITH VIT K 1 COMBO 10 ML VIAL IV SCH (15:33)
--- NOTE | 2019-12-06 16:08 | PN ---
Progress Note (short form) - Note Progress Note: Attending Surgeon Seen in f/u; complaints are much the same VSS AF abdo-soft; nontender HIDA reviewed and not c/w acute cholecystitis; may be c/w sphincter spasm; biliary dyskinesia; chronic cholecystitis IMP: favor sphincter of Oddi spasm which might account for lipase elevation as opposed to chronic cholecystitis and biliary dyskinesia. PLAN: Defer tx. to GI and primary ; may need further investigation at a tertiary care level after discharge. Theron Matute MD FACS
[2019-12-06] MEDS: LORazepam 2 MG/ML SDV VIAL IVPUSH PRN (22:20)
[2019-12-07] MEDS: AMINO ACIDS 4.25%/D5W 1,000 ML IV SCH (05:50)
--- NOTE | 2019-12-07 07:19 | PN.GI ---
GI Progress Note Subjective: patient was seen with her mother last night she had no change in symptoms CT abd --malpostion of IUD MRI questionable peripancreatic edema ABD ultrasound--cholethisis peicholecystis fluid HIDA scan significant retention of tracer in the Gallbladder after 2 hours - Objective Vital Signs: Vital Signs Temperature 98.6 F 12/07/19 05:56 Pulse Rate 66 12/07/19 05:56 Respiratory Rate 18 12/07/19 05:56 Blood Pressure 128/92 12/07/19 05:56 O2 Sat by Pulse Oximetry (%) 99 12/07/19 05:56 Constitutional: Obese Eyes: Yes: Conjunctiva Clear Neck: No: Lymphadenopathy Cardiovascular: Yes: Regular Rate and Rhythm Respiratory: Yes: CTA Bilaterally ...Palpate: Yes: Soft. No: Firm/Rigid, Guarding, Hepatomegaly, Mass, Pulsatile Mass, Splenomegaly, Tenderness Labs: CBC, BMP 12/06/19 08:15 12/06/19 08:15 Problem List - Problems (1) Intractable nausea and vomiting Code(s): R11.2 - NAUSEA WITH VOMITING, UNSPECIFIED (2) Abdominal pain Assessment/Plan: associated with nausea and vomiting r/o chronic cholecystitis, pancreatitis , SOD, R> will need EUS will arrange transfer IV ceftriaxone carbonizer tester consult even as an outpatietn regarding the malpositioned IUD Code(s): R10.9 - UNSPECIFIED ABDOMINAL PAIN
--- NOTE | 2019-12-07 10:40 | PN ---
Progress Note, Physician Chief Complaint: Abdominal pain Pancreatitis History of Present Illness: NAD Denies any abdominal pain Mild nausea Last vomiting last evening Had BM this AM Awaiting transfer to [facility] under Dr Durga Kinney for EUS. US: Cholelithiasis with thick walled gallbladder UGIS: normal appearing gastric sleeve surgery CT scan: underdistention of left colon and malpositioned IUD MRCP: Subtle peripancreatic edema, pericholecystic/periportal edema of unclear etiology - Current Medication List Current Medications: Active Medications Heparin Sodium (Porcine) (Heparin -) 5,000 unit SQ BID [facility] Last Admin: 12/06/19 22:19 Dose: Not Given Documented by: Famotidine/Sodium Chloride (Pepcid 20 Mg Premixed Ivpb -) 20 mg in 50 mls @ 100 mls/hr IVPB BID [facility] Last Admin: 12/06/19 22:20 Dose: 100 mls/hr Documented by: Amino Acids (Clinimix -) 1,000 mls @ 84 mls/hr IV Q12H [facility] Last Admin: 12/07/19 05:50 Dose: 84 mls/hr Documented by: Ceftriaxone Sodium 1 gm/ (Dextrose) 50 mls @ 100 mls/hr IVPB DAILY [facility]; Protocol Lorazepam (Ativan Injection -) 1 mg IVPUSH BID PRN PRN Reason: ANXIETY Last Admin: 12/06/19 22:20 Dose: 1 mg Documented by: Multivitamins/Minerals (Infuvite Adult -) 10 ml IV Q24H [facility] Last Admin: 12/06/19 15:33 Dose: 10 ml Documented by: Ondansetron HCl (Zofran Injection) 4 mg IVPB Q4H PRN PRN Reason: NAUSEA AND/OR VOMITING Last Admin: 12/04/19 02:23 Dose: 4 mg Documented by: Ondansetron HCl (Zofran Odt -) 4 mg SL Q6H PRN PRN Reason: NAUSEA AND/OR VOMITING Prochlorperazine Edisylate (Compazine Injection -) 10 mg IVPB Q4H PRN PRN Reason: NAUSEA AND/OR VOMITING Last Admin: 12/05/19 14:05 Dose: 10 mg Documented by: Simethicone (Mylicon -) 80 mg PO Q4H PRN PRN Reason: GAS Last Admin: 12/04/19 16:23 Dose: 80 mg Documented by: - Objective Vital Signs: Vital Signs Temperature 98.6 F 12/07/19 05:56 Pulse Rate 66 12/07/19 05:56 Respiratory Rate 18 12/07/19 05:56 Blood Pressure 128/92 12/07/19 05:56 O2 Sat by Pulse Oximetry (%) 99 12/07/19 05:56 Constitutional: Yes: Well Nourished, No Distress, Calm, Obese Cardiovascular: Yes: Regular Rate and Rhythm Respiratory: Yes: Regular, CTA Bilaterally Gastrointestinal: Yes: Soft, Abdomen, Obese, Hypoactive Bowel Sounds Genitourinary: Yes: WNL Musculoskeletal: Yes: WNL Extremities: Yes: WNL Edema: No Peripheral Pulses WNL: Yes Neurological: Yes: Alert, Oriented Psychiatric: Yes: Alert, Oriented Labs: CBC, BMP 12/06/19 08:15 12/06/19 08:15 Problem List - Problems (1) Abdominal pain Assessment/Plan: -Resolved -US: Cholelithiasis with thick walled gallbladder -UGIS: normal appearing gastric sleeve surgery -CT scan: underdistention of left colon and malpositioned IUD -MRCP: Subtle peripancreatic edema, pericholecystic/periportal edema of unclear etiology -GI consult appreciated -Surgical consult appreciated -NPO -Continue Clinimix- added KCL 40 meq Problems reviewed: Yes Code(s): R10.9 - UNSPECIFIED ABDOMINAL PAIN (2) Intractable nausea and vomiting Assessment/Plan: -Zofran PRN -Compazine PRN Problems reviewed: Yes Code(s): R11.2 - NAUSEA WITH VOMITING, UNSPECIFIED (3) Pancreatitis Assessment/Plan: -Lipase trending up -Transfer to Tertiary care center for EUS Problems reviewed: Yes Code(s): K85.90 - ACUTE PANCREATITIS WITHOUT NECROSIS OR INFECTION, UNSP Qualifiers: Chronicity: acute Pancreatitis type: other Acute pancreatitis complication: no infection or necrosis Qualified Code(s): K85.80 - Other acute pancreatitis without necrosis or infection (4) S/P laparoscopic sleeve gastrectomy Problems reviewed: Yes Code(s): Z98.84 - BARIATRIC SURGERY STATUS (5) Hypokalemia Assessment/Plan: -KCL 10 meq IVPB x 3 -Add KCL 40 meq to clinimix Problems reviewed: Yes Code(s): E87.6 - HYPOKALEMIA Assessment/Plan See problem list COVID 19 PCR in preparation of transfer Pt understands and agrees with the plan
[2019-12-07] MEDS ORDERED: cefTRIAXone SODIUM 1 GM VIAL ONE (10:48)
[2019-12-07] MEDS ORDERED: DEXTROSE 5%-WATER - 50 ML IVPB ONE (10:48)
[2019-12-07] MEDS: FAMOTIDINE 20 MG/50 ML IVPB 20 MG/50 ML MG IVPB SCH ×2 (11:02→21:59)
[2019-12-07] MEDS: CEFTRIAXONE 1 GM in DEXTROSE 5%-WATER - 50 ML IVPB SCH (11:03)
[2019-12-07] MEDS: HEPARIN NA (PORCINE) 5,000 UNITS/ML 1ML VIAL SQ SCH ×3 (11:03→21:51)
[2019-12-07] MEDS: SIMETHICONE 80 MG TAB.CHEW (FP) PO PRN ×2 (11:07→22:00)
[2019-12-07 11:22] LABS: BLOOD UREA NITROGEN 5.4 mg/dL (7-18); CALCIUM 8.9 mg/dL (8.5-10.1); CREATININE 0.4 mg/dL (0.55-1.3); POTASSIUM 3.1 mmol/L (3.5-5.1)
[2019-12-07 12:02] LABS: MAGNESIUM 1.5 mg/dL (1.8-2.4)
[2019-12-07] MEDS: KCL 10 MEQ IVPB 10 MEQ/100 ML INFUS.BAG IVPB SCH ×3 (13:14→15:10)
[2019-12-07] MEDS: POTASSIUM CHLORIDE 40 MEQ in AMINO ACIDS 4.25%/D5W 1,000 ML IVPB SCH (16:27)
[2019-12-07] MEDS: MULTIVIT INJ. ADULT COMBO WITH VIT K 1 COMBO 10 ML VIAL IV SCH (16:27)
[2019-12-07 19:06] LABS: HEP B CORE AB, TOT Negative (Negative)
[2019-12-08] MEDS ORDERED: PT OWN MED DRAWER 7, Y5N ONE (08:25)
[2019-12-08] MEDS: PROCHLORPERAZINE INJECTION 10 MG/2 ML VIAL IVPB PRN (08:28)
--- NOTE | 2019-12-08 09:22 | PN ---
Progress Note, Physician Chief Complaint: Abdominal pain Pancreatitis History of Present Illness: NAD Denies any abdominal pain Mild nausea Awaiting transfer to [facility] under Dr Durga Kinney for EUS. US: Cholelithiasis with thick walled gallbladder UGIS: normal appearing gastric sleeve surgery CT scan: underdistention of left colon and malpositioned IUD MRCP: Subtle peripancreatic edema, pericholecystic/periportal edema of unclear etiology Awaiting labs+COVID 19 PCR to be transferred to [facility] - Current Medication List Current Medications: Active Medications Heparin Sodium (Porcine) (Heparin -) 5,000 unit SQ BID [facility] Last Admin: 12/07/19 21:51 Dose: Not Given Documented by: Famotidine/Sodium Chloride (Pepcid 20 Mg Premixed Ivpb -) 20 mg in 50 mls @ 100 mls/hr IVPB BID [facility] Last Admin: 12/07/19 21:59 Dose: 100 mls/hr Documented by: Ceftriaxone Sodium 1 gm/ (Dextrose) 50 mls @ 100 mls/hr IVPB DAILY [facility]; Protocol Last Admin: 12/07/19 11:03 Dose: 100 mls/hr Documented by: Potassium Chloride 40 meq/ (Amino Acids) 1,020 mls @ 84 mls/hr IVPB Q12H [facility] Last Admin: 12/07/19 16:27 Dose: 84 mls/hr Documented by: Lorazepam (Ativan Injection -) 1 mg IVPUSH BID PRN PRN Reason: ANXIETY Last Admin: 12/06/19 22:20 Dose: 1 mg Documented by: Multivitamins/Minerals (Infuvite Adult -) 10 ml IV Q24H [facility] Last Admin: 12/07/19 16:27 Dose: 10 ml Documented by: Ondansetron HCl (Zofran Injection) 4 mg IVPB Q4H PRN PRN Reason: NAUSEA AND/OR VOMITING Last Admin: 12/04/19 02:23 Dose: 4 mg Documented by: Ondansetron HCl (Zofran Odt -) 4 mg SL Q6H PRN PRN Reason: NAUSEA AND/OR VOMITING Prochlorperazine Edisylate (Compazine Injection -) 10 mg IVPB Q4H PRN PRN Reason: NAUSEA AND/OR VOMITING Last Admin: 12/08/19 08:28 Dose: 10 mg Documented by: Simethicone (Mylicon -) 80 mg PO Q4H PRN PRN Reason: GAS Last Admin: 12/07/19 22:00 Dose: 80 mg Documented by: - Objective Vital Signs: Vital Signs Temperature 98.6 F 12/08/19 06:00 Pulse Rate 96 H 12/08/19 06:00 Respiratory Rate 18 12/08/19 06:00 Blood Pressure 111/66 12/08/19 06:00 O2 Sat by Pulse Oximetry (%) 97 12/08/19 06:00 Constitutional: Yes: Well Nourished, No Distress, Calm Cardiovascular: Yes: Regular Rate and Rhythm Respiratory: Yes: Regular, CTA Bilaterally Gastrointestinal: Yes: Normal Bowel Sounds, Soft Genitourinary: Yes: WNL Musculoskeletal: Yes: WNL Extremities: Yes: WNL Edema: No Peripheral Pulses WNL: Yes Neurological: Yes: Alert, Oriented Psychiatric: Yes: Alert, Oriented Labs: CBC, BMP 12/06/19 08:15 12/07/19 09:42 Problem List - Problems (1) Abdominal pain Assessment/Plan: -Resolved -US: Cholelithiasis with thick walled gallbladder -UGIS: normal appearing gastric sleeve surgery -CT scan: underdistention of left colon and malpositioned IUD -MRCP: Subtle peripancreatic edema, pericholecystic/periportal edema of unclear etiology -GI consult appreciated -Surgical consult appreciated -NPO -Continue Clinimix- added KCL 40 meq Problems reviewed: Yes Code(s): R10.9 - UNSPECIFIED ABDOMINAL PAIN (2) Intractable nausea and vomiting Assessment/Plan: -Zofran PRN -Compazine PRN Problems reviewed: Yes Code(s): R11.2 - NAUSEA WITH VOMITING, UNSPECIFIED (3) Pancreatitis Assessment/Plan: -Lipase stable -Awaiting labs for today -Transfer to Tertiary care center for EUS Problems reviewed: Yes Code(s): K85.90 - ACUTE PANCREATITIS WITHOUT NECROSIS OR INFECTION, UNSP Qualifiers: Chronicity: acute Pancreatitis type: other Acute pancreatitis complication: no infection or necrosis Qualified Code(s): K85.80 - Other acute pancreatitis without necrosis or infection (4) S/P laparoscopic sleeve gastrectomy Problems reviewed: Yes Code(s): Z98.84 - BARIATRIC SURGERY STATUS (5) Hypokalemia Assessment/Plan: -Repeat labs pending -Added KCL 40 meq to clinimix -Monitor trend Problems reviewed: Yes Code(s): E87.6 - HYPOKALEMIA Assessment/Plan See problem list COVID 19 PCR in preparation of transfer Pt understands and agrees with the plan
[2019-12-08] MEDS ORDERED: cefTRIAXone SODIUM 1 GM VIAL ONE (10:00)
[2019-12-08] MEDS ORDERED: DEXTROSE 5%-WATER - 50 ML IVPB ONE (10:00)
[2019-12-08 10:04] LABS: ALBUMIN 3.3 g/dl (3.4-5.0); BILIRUBIN,TOTAL 0.8 mg/dL (0.2-1); BLOOD UREA NITROGEN 7.7 mg/dL (7-18); CALCIUM 8.9 mg/dL (8.5-10.1); CREATININE 0.4 mg/dL (0.55-1.3); POTASSIUM 3.7 mmol/L (3.5-5.1); TOT PROT 6.8 g/dl (6.4-8.2)
[2019-12-08] MEDS: POTASSIUM CHLORIDE 40 MEQ in AMINO ACIDS 4.25%/D5W 1,000 ML IVPB SCH ×2 (10:16)
[2019-12-08] MEDS: FAMOTIDINE 20 MG/50 ML IVPB 20 MG/50 ML MG IVPB SCH (10:33)
[2019-12-08] MEDS: CEFTRIAXONE 1 GM in DEXTROSE 5%-WATER - 50 ML IVPB SCH (10:33)
[2019-12-08] MEDS: HEPARIN NA (PORCINE) 5,000 UNITS/ML 1ML VIAL SQ SCH (10:33)
--- NOTE | 2019-12-08 14:39 | PN ---
Progress Note (short form) - Note Progress Note: Patient states she has less nausea No vomiting Pain improved Abd soft, tenderness improved CBC,CMP WBC 6.2 K/mm3 (4.0-10.0) 12/06/19 08:15 RBC 4.61 M/mm3 (3.60-5.2) 12/06/19 08:15 Hgb 12.6 GM/dL (10.7-15.3) 12/06/19 08:15 Hct 38.5 % (32.4-45.2) 12/06/19 08:15 MCV 83.5 fl (80-96) 12/06/19 08:15 MCH 27.4 pg (25.7-33.7) 12/06/19 08:15 MCHC 32.8 g/dl (32.0-36.0) 12/06/19 08:15 RDW 15.2 % (11.6-15.6) 12/06/19 08:15 Plt Count 192 K/MM3 (134-434) 12/06/19 08:15 MPV 10.4 fl (7.5-11.1) 12/06/19 08:15 Absolute Neuts (auto) 3.9 K/mm3 (1.5-8.0) 12/06/19 08:15 Neutrophils % 63.5 % (42.8-82.8) 12/06/19 08:15 Lymphocytes % 26.4 % (8-40) 12/06/19 08:15 Monocytes % 7.9 % (3.8-10.2) 12/06/19 08:15 Eosinophils % 1.5 % (0-4.5) 12/06/19 08:15 Basophils % 0.7 % (0-2.0) 12/06/19 08:15 Nucleated RBC % 0 % (0-0) 12/06/19 08:15 Sodium 138 mmol/L (136-145) 12/08/19 08:42 Potassium 3.7 mmol/L (3.5-5.1) 12/08/19 08:42 Chloride 104 mmol/L (98-107) 12/08/19 08:42 Carbon Dioxide 23 mmol/L (21-32) 12/08/19 08:42 Anion Gap 11 MMOL/L (8-16) 12/08/19 08:42 BUN 7.7 mg/dL (7-18) 12/08/19 08:42 Creatinine 0.4 mg/dL (0.55-1.3) L 12/08/19 08:42 Est GFR (CKD-EPI)AfAm 165.44 12/08/19 08:42 Est GFR (CKD-EPI)NonAf 142.74 12/08/19 08:42 Random Glucose 88 mg/dL (74-106) 12/08/19 08:42 Calcium 8.9 mg/dL (8.5-10.1) 12/08/19 08:42 Phosphorus 3.4 mg/dL (2.5-4.9) 12/06/19 08:15 Magnesium 1.5 mg/dL (1.8-2.4) L 12/07/19 09:42 Total Bilirubin 0.8 mg/dL (0.2-1) 12/08/19 08:42 Direct Bilirubin 0.2 mg/dL (0.0-0.2) 12/04/19 11:40 AST 26 U/L (15-37) 12/08/19 08:42 ALT 51 U/L (13-61) 12/08/19 08:42 Alkaline Phosphatase 66 U/L (45-117) 12/08/19 08:42 Creatine Kinase Cancelled 12/01/19 15:20 Troponin I Cancelled 12/01/19 15:20 Total Protein 6.8 g/dl (6.4-8.2) 12/08/19 08:42 Albumin 3.3 g/dl (3.4-5.0) L 12/08/19 08:42 Total Amylase 100 U/L (25-115) 12/06/19 08:15 Lipase 1244 U/L (73-393) H 12/08/19 08:42 Serum , Qual Negative 12/01/19 15:15 Patient being transferred to [facility] for EUS Problem List - Problems (1) Pancreatitis Code(s): K85.90 - ACUTE PANCREATITIS WITHOUT NECROSIS OR INFECTION, UNSP Qualifiers: Chronicity: acute Pancreatitis type: other Acute pancreatitis complication: no infection or necrosis Qualified Code(s): K85.80 - Other acute pancreatitis without necrosis or infection
[2019-12-08 14:55] VITALS: BP 114/55; PULSE 73; TEMP 98.5
== END 2019-12-08 16:39 | disposition short-term general hospital (02) ==
LOC: JER 14:25 → JERBED 22:37 → J6S 12-02 01:46
PROVIDERS: ADMIT Internal Medicine; ATTEND Family Medicine
DX: K83.4 Spasm of sphincter of Oddi (principal); K85.80 Other acute pancreatitis without necrosis or infection; K81.1 Chronic cholecystitis; K21.9 Gastro-esophageal reflux disease without esophagitis; R73.03 Prediabetes; E86.0 Dehydration; K82.8 Other specified diseases of gallbladder; R11.2 Nausea with vomiting, unspecified; R74.8 Abnormal levels of other serum enzymes; E87.6 Hypokalemia; K82.9 Disease of gallbladder, unspecified; E66.9 Obesity, unspecified; Z68.38 Body mass index [BMI] 38.0-38.9, adult; Z11.59 Encounter for screening for other viral diseases; Z98.84 Bariatric surgery status
CPT/HCPCS: 36415; 71046-TC-FY; 74177-TC; 74182-TC; 76705-TC; 78226-TC; 80048; 80053; 80076; 81003; 82150; 82550; 83690; 83735; 84100; 84484; 84703; 85025; 86704; 86706; 86707; 86708; 86709; 87340; 87522; 93005; 93010; 99285-25; A9537; J1644; Q9967; U0003

== ENCOUNTER 2020-03-03 22:48 | Emergency (ER) | payer OTHER ==
[2020-03-03 22:59] VITALS: BP 119/71; PULSE 74; TEMP 98; BMI 37.0
== END 2020-03-03 23:32 | disposition home or self-care (01) ==
LOC: JERFT 22:48
DX: R06.02 Shortness of breath (principal)
CPT/HCPCS: 99283-25; C9803; U0003

== ENCOUNTER 2020-03-06 15:06 | Emergency (ER) | payer OTHER ==
[2020-03-06 15:23] VITALS: BP 107/53; PULSE 67; TEMP 98.6; BMI 37.0
[2020-03-06] MEDS ORDERED: SODIUM CHLORIDE 1,000 ML IV STA (16:09)
[2020-03-06] MEDS ORDERED: ACETAMINOPHEN 1000 MG/100 ML VIAL (NON FORMULARY) IVPB ONE (16:09)
[2020-03-06] MEDS ORDERED: ONDANSETRON 4 MG/2 ML VIAL IVPUSH ONE (16:13)
[2020-03-06] MEDS ORDERED: ACETAMINOPHEN INJECTION 100 ML IVPB ONE (16:54)
[2020-03-06 17:22] LABS: BASO % 0.7 % (0-2.0); EOS % 0.6 % (0-4.5); HEMATOCRIT 41.8 % (32.4-45.2); HEMOGLOBIN 13.9 GM/dL (10.7-15.3); MCH 29.2 pg (25.7-33.7); MCHC 33.2 g/dl (32.0-36.0); MEAN PLT VOLUME 9.6 fl (7.5-11.1); NEUT % 67.7 % (42.8-82.8); PLATELET COUNT 280 K/MM3 (134-434); RBC 4.75 M/mm3 (3.60-5.2); RDW 13.8 % (11.6-15.6); WHITE BLOOD COUNT 9.5 K/mm3 (4.0-10.0)
[2020-03-06 17:44] LABS: POTASSIUM 3.9 mmol/L (3.5-5.1)
[2020-03-06 17:47] LABS: BLOOD UREA NITROGEN 7.7 mg/dL (7-18); MAGNESIUM 1.8 mg/dL (1.8-2.4)
[2020-03-06 17:50] LABS: CREATININE 0.6 mg/dL (0.55-1.3)
[2020-03-06 17:51] LABS: BILIRUBIN,TOTAL 0.4 mg/dL (0.2-1)
[2020-03-06 18:05] LABS: EPI CELLS >36 /uL (0-25.1); HYALINE CASTS 11 /uL (0-3.1); PH,URINE 5.5 (5.0-8.0); URINE APPEARANCE CLOUDY; URINE BACTERIA 1316 /uL (0-1359); URINE BILIRUBIN NEGATIVE (NEGATIVE); URINE COLOR YELLOW; URINE GLUCOSE (UA) NEGATIVE (NEGATIVE); URINE KETONE 4+ (NEGATIVE); URINE LEUK ESTERASE NEGATIVE (NEGATIVE); URINE NITRITE NEGATIVE (NEGATIVE); URINE PROTEIN 1+ (NEGATIVE); URINE RBC 17 /uL (0-23.9); URINE WBC 40 /uL (0-25.8)
[2020-03-06] MEDS ORDERED: MAG HYDROX/AL HYDROX/SIMETH 30 ML UNIT-DOSE CUP ONE (18:09)
== END 2020-03-06 22:25 | disposition home or self-care (01) ==
LOC: JER 15:06
PROC: 3E0333Z Introduction of Anti-inflammatory into Peripheral Vein, Percutaneous Approach (ICD-10-PCS; principal; 2020-03-06)
PROC: 3E033GC Introduction of Other Therapeutic Substance into Peripheral Vein, Percutaneous Approach (ICD-10-PCS; 2020-03-06)
PROC: 3E0337Z Introduction of Electrolytic and Water Balance Substance into Peripheral Vein, Percutaneous Approach (ICD-10-PCS; 2020-03-06)
DX: R11.2 Nausea with vomiting, unspecified (principal)
CPT/HCPCS: 36415; 76817-TC; 80053; 81003; 83690; 83735; 84702; 84703; 85025; 86850; 86900; 86901; 99284-25; J0131

== ENCOUNTER 2022-08-06 09:16 | Emergency (ER) | payer OTHER ==
[2022-08-06 09:21] VITALS: RESP 18; TEMP 98.2; BMI 29.2
[2022-08-06] MEDS ORDERED: ACETAMINOPHEN 500 MG TABLET (FP) PO ONE (10:08)
[2022-08-06] MEDS ORDERED: ACETAMINOPHEN 325 MG TABLET (FP) ONE (10:15)
[2022-08-06 10:23] LABS: INR 1.23 (0.83-1.09); PROTHROMBIN TIME (PATIENT) 14.2 SEC (9.7-13.0)
[2022-08-06 10:26] LABS: ACTIVATED PTT 34.8 SECONDS (25.2-36.5)
[2022-08-06 10:35] LABS: CALCIUM 8.9 mg/dL (8.5-10.1)
[2022-08-06 10:36] LABS: ALBUMIN 3.9 g/dl (3.4-5.0); BLOOD UREA NITROGEN 10.1 mg/dL (7-18)
[2022-08-06 10:39] LABS: CREATININE 0.6 mg/dL (0.55-1.3)
[2022-08-06 10:40] LABS: BASO % 0.6 % (0-2.0); EOS % 1.4 % (0-4.5); HEMATOCRIT 35.9 % (32.4-45.2); HEMOGLOBIN 12.4 GM/dL (10.7-15.3); LYMPH % 31.8 % (8-40); MCH 29.1 pg (25.7-33.7); MCHC 34.4 g/dl (32.0-36.0); MEAN CELL VOLUME 84.6 fl (80-96); MEAN PLT VOLUME 9.3 fl (7.5-11.1); MONO % 6.1 % (3.8-10.2); NEUT % 60.1 % (42.8-82.8); PLATELET COUNT 248 10^3/uL (134-434); RBC 4.25 M/mm3 (3.60-5.2); RDW 13.8 % (11.6-15.6); TOT PROT 7.3 g/dl (6.4-8.2); WHITE BLOOD COUNT 6.2 K/mm3 (4.0-10.0)
[2022-08-06 10:41] LABS: BILIRUBIN,TOTAL 0.4 mg/dL (0.2-1)
[2022-08-06] MEDS ORDERED: ACETAMINOPHEN 1000 MG/100 ML BAG IVPB ONE (10:56)
[2022-08-06 12:14] VITALS: BP 110/66; PULSE 70
== END 2022-08-06 12:14 | disposition home or self-care (01) ==
LOC: JER 09:16
DX: K42.0 Umbilical hernia with obstruction, without gangrene (principal)
CPT/HCPCS: 36415; 74177-TC; 80053; 84703; 85025; 85610; 85730; 86850; 86900; 86901; 99285-25; Q9967